=== PATIENT | female | born 2000 | race Two or more races ===

== ENCOUNTER 2024-08-19 09:49 | Outpatient (AMB) | payer MEDICAID, SELFPAY ==
--- NOTE | 2024-08-19 10:08 | OBCLNT_ITS ---
Vital Signs 08/19/24 10:09 Height 1.68 m Height Method Stated Weight 80.002 kg Weight Measurement Method Standing Scale BMI 28.4 BP 112/78 Blood Pressure Source Automatic Cuff Blood Pressure Location Left Upper Arm Position Sitting Respiration 18 Pulse 94 Pulse Source Monitor Temp 98.1 F Temp Source Oral Pulse Oximetry (%) 98 Oxygen Delivery Method Room Air Allergies/Home Meds Allergies & Medications Allergies No Known Allergies Allergy (Verified 08/19/24 10:10) Medication Reconciliation vit no.95-ferrous fumarate 28 mg-folic acid 800 mcg tablet () 1 tab PO QDAY 02/13/23 [History Confirmed 08/19/24] Intake Visit Data Collection New Patient or Established: Established Patient (seen at [facility] within 3 years) Reason for Visit:: Care 10 weeks Seen by Clinical Staff ONLY (RN/MA): No Major Gifts Manager Required: No Do You Feel Safe at Home: Yes Authorities Contacted: N/A PCP or OBGYN visit in last 3 months: Yes Hx Now: Yes Are you currently on any form of Control: No Last menstrual period: 06/11/24 Pain Present Currently: No Pain Scale Used: Hood-Roldan/Numerical Pain scale:: 0 Smoking Status Smoking Status: Never smoker Questionnaires Covid-19 Vaccine Questionnaire Has patient been vacinated for Covid-19 Have you been vacinated for Covid-19: Yes Date of last Covid Vaccine or Booster?: 04/21/21 PHQ-9 PHQ-2 Over the last 2 weeks, how often have you been bothered by any of the following problems? 1. Little interest or pleasure in doing things: not at all 2. Feeling down, depressed, or hopeless: not at all Total score: 0 PHQ-9 3. Trouble falling or staying asleep, or sleeping too much: Not at all 4. Feeling tired or having little energy: Not at all 5. Poor appetite or overeating: Not at all 6. Feeling bad about yourself - or that you are a failure or have let yourself or your family down: Not at all 7. Trouble concentrating on things, such as reading the newspaper or watching television: Not at all 8. Moving or speaking so slowly that other people could have noticed? - Or the opposite - being so fidgety or restless that you have been moving around a lot more than usual: not at all 9. Thoughts that you would be better off or of hurting yourself in some way: Not at all Total score: 0 Source: Developed by Drs. Drew West, Olinda Valente, Wilbert Jamison and colleagues, with an educational delroy from [employer]. Depression screen completed yes Social History Living Situation History Marital Status: Single Lives With: Family Housing: House Tobacco History Smoking Status: Never smoker Alcohol History Alcohol Intake: Never Substance Use History Substance Use: no Domestic Abuse History Do You Feel Safe at Home: Yes Past Medical History Past Medical History Have you ever been diagnosed with any of the following: Neurological Problems Cerebrovascular Accident (CVA): No Transient Ischemic Attacks (TIA): No Dementia: No Alzheimer's Disease: No Parkinson's Disease: No Brain Tumor: No Meningitis: No Seizures: No Epilepsy: No Multiple Sclerosis: No Cerebral Palsy: No Amyotrophic Lateral Sclerosis (ALS/Addie Gehrig's): No Guillain-[place] Syndrome: No Spina Bifida: No Paralysis: No Peripheral Neuropathy: No Thorne's Palsy: No Subdural Hematoma: No Migraine: No Head Trauma: No Spinal Cord Injury: No Traumatic Brain Injury: No Cardiology Problems Myocardial Infarction: No Cardiac Arrhythmia: No Atrial Fibrillation: No Angina: No Heart Murmur: No Coronary Artery Disease: No Atherosclerotic Heart Disease: No Peripheral Vascular Disease: No Hypercholesterolemia: No Aneurysm: No Congestive Heart Failure: No Congenital Heart Disease: No Valvular Heart Disease: No Rheumatic Fever: No Cardiomyopathy: No Edema: No Pericarditis: No Cellulitis: No Deep Vein Thrombosis: No Hypertension: No Hypotension: No Varicose Veins: No Respiratory Problems Chronic Obstructive Pulmonary Disease (COPD): No Asthma: No Bronchitis: No Emphysema: No Pneumonia: No Pulmonary Fibrosis: No Tuberculosis: No Pulmonary Embolism: No Pulmonary Edema: No Sleep Apnea: No CPAP Dependent: No Respiratory Aspiration: No Dyspnea: No Orthopnea: No Hx Cough: No Cough: No Wheezing: No Chest Deformities: No Smoking: No Smoking Cessation Counseling: No Smoking Exposure: No Tobacco Use: No Clubbing: No Exposure to Respiratory Irritants: No Intubation: No Stomache/Intestinal Problems Liver Cancer: No Hepatitis: No Cirrhosis: No Pancreatic Cancer: No Pancreatitis: No Celiac Disease: No Gall Bladder Disease: No Gastrointestinal Bleed: No Esophageal Varices: No Waggoner's Esophagus: No Colitis: No Ulcerative Colitis: No Diverticulitis: No Diverticulosis: No Ulcer: No Colorectal Cancer: No Irritable Bowel: No Crohn's Disease: No Obstructive Bowel: No Hiatal Hernia: No Hemorrhoids: No Gastroesophageal Reflux Disease: No Polyps: No Obesity: No Genital/Urinary Problems Chronic Kidney Disease: No Renal Disease: No Kidney Stones: No Polycystic Kidney Disease: No Neurogenic Bladder: No Inguinal Hernia: No Dialysis: No Prostate Cancer: No Benign Prostatic Hyperplasia: No Reproductive Problems Breast Cancer: No Endometriosis: No Fibroids: No Genital Herpes: No Gonorrhea: No Pelvic Inflammatory Disease: No Polycystic Ovarian Syndrome: No Previous Pregnancies: No Syphilis: No Endocrine Problems Diabetes Mellitus Type 1: No Diabetes Mellitus Type 2: No Blood Problems Anemia: No Leukemia: No Hemophilia: No Thalassemia: No Sickle Cell Disease: No Clotting Problems: No Psychologic Problems Depression: No Anxiety: No Behavior Problems: No Other Problems Hospitalization: No Down Syndrome: No Developmental Delay: No Falls: No History of Present Illness HPI Narrative The patient is a 24-year-old -0-0-1 who presents to [facility]. She is approximately 8 to 9 weeks today. Her LMP was 06/11/2024 her EDC is 03/18/2025. She has a history of a vaginal delivery in . She was delivered by Rosa Elena Camilo. She states that she presented leaking fluid was admitted about 7 in the morning and delivered the baby the next afternoon at 4 PM she pushed approximately 30 minutes she had an epidural and an episiotomy she had a baby girl weighing 8 pounds 6 ounces she was 40 weeks . This she will stay home with her baby the father of the baby is the same as the previous his name is Guido and he is a combination welder apprentice. Patient has no complaints today no nausea vomiting no abnormal discharge no heavy vaginal bleeding. OB Initial Visit Menstrual History Menstrual reliability: definite Flow: normal Menstrual regularity: regular Monthly: Yes Age at menarche: 13 On control pills at conception: No Date of positive home test: 07/13/24 Associated symptoms (LMP): Reports nausea, vomiting, fatigue and bloating Infection History & Risk Evaluation History of STDs: none Genetic Screening & History Genetic Screening/Teratology Counseling - Includes patient, baby's father, or anyone in either family with: 1. Patient's age 35 years or older as of estimated date of delivery: No 2. Thalassemia (Icelandic, Chinese, Mediterranean, or Background); MCV less than 80: No 3. Neural Tube Defect (Meningomyelocele, Spina Bifida, or Anencephaly): No 4. Congenital Heart Defect: No 5. Down Syndrome: No 6. Alvaro-Sachs (Ashkenazi Bahai, Cajun, Malay Cato): No 7. Eve Disease (Ashkenazi Bahai): No 8. Familial Dysautonomia (Ashkenazi Bahai): No 9. Sickle Cell Disease or Trait (): No 10. Hemophilia or other blood disorders: No 11. Muscular Dystrophy: No 12. Cystic Fibrosis: No 13. Mcculloch's Chorea: No 14. Mental Retardation/Autism: No 15. Other inherited genetic or chromosomal disorder: No 16. Maternal Metabolic Disorder (EG,TYPE 1 Diabetes, PKU): No 17. Patient or baby's father had a child with defects not listed above: No 18. Recurrent loss or a stillbirth: No 19. Medications (including supplements, vitamins, herbs or otc drugs)/illicit/recreational drugs/alcohol since last menstrual period: No 20. Any other: No Comments/Counseling: Patient desires NIPT testing today. Infection History 1. Live with someone with TB or exposed to TB: No 2. Rash or viral illness since last menstrual period: No 3. Hepatitis B,C: No Other (see comments) Source: [employer] OB Flowsheet OB Flowsheet Initial Weight: Not Recorded Date -?-?-?-?-?-?-?-?-?-?-?-?- EGA Weight Edema CTX Effacement BP Fundal ht Pres Dilation Effacement Station Visit Note Alb Glu FHR Mov 08/19/24 -?-?-?-?-?-?-?-?-?-?-?-?- 8w 5d 80.002 kg 112/78 140 Review of Systems Constitutional Constitutional: Reports system reviewed and no additional complaints, except as documented and Reports fatigue Gastrointestinal Gastrointestinal: Reports bloating, Reports nausea and Reports vomiting Endocrine Endocrine: Reports fatigue Exam General Limitations: no limitations General Appearance: alert, in no apparent distress, comfortable and cooperative Card Cardiovascular exam: Present regular rate and normal rhythm Abdominal Abdominal exam: Present soft Rectal Rectal exam: Present deferred External exam: Present normal external exam Bimanual exam: Present normal bimanual exam Extremities Extremities exam: Present normal inspection Results Objective Laboratory: labs are reviewed drawn at [facility] on 07/26/2024 her blood type is O- antibody negative hep B surface antigen negative RPR negative rubella immune hep C negative GC committee negative and her urine was contaminated. Patient is not due for a Pap smear. Assessment & Plan Additional Assessment Assessment is intrauterine at 8 weeks 5 days. Due date is around 03/25/2025. She is redated based on today's ultrasound. Patient will stay at home this . The father of the baby's name is Guido and he is a combination welder apprentice. Additional Plan Past OB History is reviewed: The patient had a vaginal delivery in at 40 weeks. Baby weighed 8 pounds 6 ounces was a female. Named Siomara. She presented to the hospital leaking fluid. She was admitted approximately 7 in the morning and delivered at 4 PM the next day. She had an epidural and episiotomy and only pushed 30 minutes per patient. Rosa Elena Camilo delivered her. Follow Up: 4 Weeks (call for appointment) Office Procedures OB Clinic LOC & Office Proc's Nursing/Assessment Patient Status: Established Patient OB Clinic Nursing Assessment: Medication Reconciliation, Update PMH in EMR and Vital Signs OB Clinic Coordination of Care: Complex Care and Chronic Disease 1-5, Consent,records obtained, informed consent, Education Simp Pt/Fam, Lab and Imaging orders, Results/Orders obtained and Staff clarify orders Special Needs: Heart tones Established Patient Charge Established Patient Point Assignment: 135 Established Patient Point Charge: EP Level 4 (120-155)
[2024-08-19 10:09] VITALS: BP 112/78; PULSE 94; RESP 18; TEMP 36.7; O2SAT 98; BMI 28.4
--- NOTE | 2024-08-19 10:59 | AMB.GYNCLNOT ---
Vital Signs 08/19/24 10:09 Height 1.68 m Height Method Stated Weight 80.002 kg Weight Measurement Method Standing Scale BMI 28.4 BP 112/78 Blood Pressure Source Automatic Cuff Blood Pressure Location Left Upper Arm Position Sitting Respiration 18 Pulse 94 Pulse Source Monitor Temp 98.1 F Temp Source Oral Pulse Oximetry (%) 98 Oxygen Delivery Method Room Air Allergies/Home Meds Allergies & Medications Allergies No Known Allergies Allergy (Verified 08/19/24 10:10) Medication Reconciliation vit no.95-ferrous fumarate 28 mg-folic acid 800 mcg tablet () 1 tab PO QDAY 02/13/23 [History Confirmed 08/19/24] Intake Visit Data Collection Do You Feel Safe at Home: Yes Smoking Status Smoking Status: Never smoker Questionnaires Covid-19 Vaccine Questionnaire Has patient been vacinated for Covid-19 Have you been vacinated for Covid-19: Yes Date of last Covid Vaccine or Booster?: 04/21/21 PHQ-9 PHQ-2 Over the last 2 weeks, how often have you been bothered by any of the following problems? 1. Little interest or pleasure in doing things: not at all PHQ-9 3. Trouble falling or staying asleep, or sleeping too much: Not at all 4. Feeling tired or having little energy: Not at all 5. Poor appetite or overeating: Not at all 6. Feeling bad about yourself - or that you are a failure or have let yourself or your family down: Not at all 7. Trouble concentrating on things, such as reading the newspaper or watching television: Not at all 8. Moving or speaking so slowly that other people could have noticed? - Or the opposite - being so fidgety or restless that you have been moving around a lot more than usual: not at all Total score: 0 Source: Developed by Drs. Drew West, Olinda Valente, Wilbert Jamison and colleagues, with an educational delroy from [employer]. Social History Living Situation History Marital Status: Single Lives With: Family Housing: House Tobacco History Smoking Status: Never smoker Alcohol History Alcohol Intake: Never Substance Use History Substance Use: no Domestic Abuse History Do You Feel Safe at Home: Yes Past Medical History Past Medical History Have you ever been diagnosed with any of the following: Neurological Problems Cerebrovascular Accident (CVA): No Transient Ischemic Attacks (TIA): No Dementia: No Alzheimer's Disease: No Parkinson's Disease: No Brain Tumor: No Meningitis: No Seizures: No Epilepsy: No Multiple Sclerosis: No Cerebral Palsy: No Amyotrophic Lateral Sclerosis (ALS/Addie Gehrig's): No Guillain-[place] Syndrome: No Spina Bifida: No Paralysis: No Peripheral Neuropathy: No Thorne's Palsy: No Subdural Hematoma: No Migraine: No Head Trauma: No Spinal Cord Injury: No Traumatic Brain Injury: No Cardiology Problems Myocardial Infarction: No Cardiac Arrhythmia: No Atrial Fibrillation: No Angina: No Heart Murmur: No Coronary Artery Disease: No Atherosclerotic Heart Disease: No Peripheral Vascular Disease: No Hypercholesterolemia: No Aneurysm: No Congestive Heart Failure: No Congenital Heart Disease: No Valvular Heart Disease: No Rheumatic Fever: No Cardiomyopathy: No Edema: No Pericarditis: No Cellulitis: No Deep Vein Thrombosis: No Hypertension: No Hypotension: No Varicose Veins: No Respiratory Problems Chronic Obstructive Pulmonary Disease (COPD): No Asthma: No Bronchitis: No Emphysema: No Pneumonia: No Pulmonary Fibrosis: No Tuberculosis: No Pulmonary Embolism: No Pulmonary Edema: No Sleep Apnea: No CPAP Dependent: No Respiratory Aspiration: No Dyspnea: No Orthopnea: No Hx Cough: No Cough: No Wheezing: No Chest Deformities: No Smoking: No Smoking Cessation Counseling: No Smoking Exposure: No Tobacco Use: No Clubbing: No Exposure to Respiratory Irritants: No Intubation: No Stomache/Intestinal Problems Liver Cancer: No Hepatitis: No Cirrhosis: No Pancreatic Cancer: No Pancreatitis: No Celiac Disease: No Gall Bladder Disease: No Gastrointestinal Bleed: No Esophageal Varices: No Waggoner's Esophagus: No Colitis: No Ulcerative Colitis: No Diverticulitis: No Diverticulosis: No Ulcer: No Colorectal Cancer: No Irritable Bowel: No Crohn's Disease: No Obstructive Bowel: No Hiatal Hernia: No Hemorrhoids: No Gastroesophageal Reflux Disease: No Polyps: No Obesity: No Genital/Urinary Problems Chronic Kidney Disease: No Renal Disease: No Kidney Stones: No Polycystic Kidney Disease: No Neurogenic Bladder: No Inguinal Hernia: No Dialysis: No Prostate Cancer: No Benign Prostatic Hyperplasia: No Reproductive Problems Breast Cancer: No Endometriosis: No Fibroids: No Genital Herpes: No Gonorrhea: No Pelvic Inflammatory Disease: No Polycystic Ovarian Syndrome: No Previous Pregnancies: No Syphilis: No Endocrine Problems Diabetes Mellitus Type 1: No Diabetes Mellitus Type 2: No Blood Problems Anemia: No Leukemia: No Hemophilia: No Thalassemia: No Sickle Cell Disease: No Clotting Problems: No Psychologic Problems Depression: No Anxiety: No Behavior Problems: No Other Problems Hospitalization: No Down Syndrome: No Developmental Delay: No Falls: No Office Procedures OB Clinic LOC & Office Proc's Nursing/Assessment Patient Status: Established Patient OB Clinic Nursing Assessment: Medication Reconciliation, Update PMH in EMR and Vital Signs OB Clinic Coordination of Care: Complex Care and Chronic Disease 1-5, Consent,records obtained, informed consent, Education Simp Pt/Fam, Lab and Imaging orders, Results/Orders obtained and Staff clarify orders Special Needs: Heart tones Established Patient Charge Established Patient Point Assignment: 135 Established Patient Point Charge: EP Level 4 (120-155)
== END 2024-08-19 10:41 | disposition home or self-care (01) ==
LOC: HODSOBC 09:49
PROVIDERS: PCP Family Medicine; Supervising Provider Obstetrics & Gynecology; Visit Provider Obstetrics & Gynecology
DX: Z34.81 Encounter for supervision of other normal pregnancy, first trimester (principal); Z3A.09 9 weeks gestation of pregnancy
CPT/HCPCS: 99213; 99214; G0463

== ENCOUNTER 2024-09-11 09:53 | Outpatient (AMB) | payer MEDICAID, SELFPAY ==
[2024-09-11 10:06] VITALS: BP 102/69; PULSE 76; RESP 14; TEMP 36.6; O2SAT 98; BMI 27.9
--- NOTE | 2024-09-11 10:06 | OBCLNT_ITS ---
Vital Signs 09/11/24 10:06 Height 1.68 m Height Method Stated Weight 78.528 kg Weight Measurement Method Standing Scale BMI 27.9 BP 102/69 Blood Pressure Source Automatic Cuff Blood Pressure Location Left Upper Arm Position Sitting Respiration 14 Pulse 76 Pulse Source Monitor Temp 97.9 F Temp Source Oral Pulse Oximetry (%) 98 Oxygen Delivery Method Room Air Allergies/Home Meds Allergies & Medications Allergies No Known Allergies Allergy (Verified 09/11/24 10:08) Medication Reconciliation vit no.95-ferrous fumarate 28 mg-folic acid 800 mcg tablet () 1 tab PO QDAY 02/13/23 [History Confirmed 09/11/24] Intake Visit Data Collection New Patient or Established: Established Patient (seen at [facility] within 3 years) Reason for Visit:: 4 week OB visit Seen by Clinical Staff ONLY (RN/MA): No Ecological Economist Required: No Do You Feel Safe at Home: Yes Authorities Contacted: N/A PCP or OBGYN visit in last 3 months: Yes Date of Last PCP or OBGYN visit: 08/19/24 Hx Now: Yes Are you currently on any form of Control: No Last menstrual period: 06/11/24 Pain Present Currently: No Pain Scale Used: Hood-Roldan/Numerical Pain scale:: 0 Smoking Status Smoking Status: Never smoker Questionnaires Covid-19 Vaccine Questionnaire Has patient been vacinated for Covid-19 Have you been vacinated for Covid-19: Yes PHQ-9 PHQ-2 Over the last 2 weeks, how often have you been bothered by any of the following problems? 1. Little interest or pleasure in doing things: not at all 2. Feeling down, depressed, or hopeless: not at all Total score: 0 PHQ-9 3. Trouble falling or staying asleep, or sleeping too much: Not at all 4. Feeling tired or having little energy: Not at all 5. Poor appetite or overeating: Not at all 6. Feeling bad about yourself - or that you are a failure or have let yourself or your family down: Not at all 7. Trouble concentrating on things, such as reading the newspaper or watching television: Not at all 8. Moving or speaking so slowly that other people could have noticed? - Or the opposite - being so fidgety or restless that you have been moving around a lot more than usual: not at all 9. Thoughts that you would be better off or of hurting yourself in some way: Not at all Total score: 0 Source: Developed by Drs. Drew West, Olinda Valente, Wilbert Jamison and colleagues, with an educational delroy from [employer]. Depression screen completed yes Social History Living Situation History Marital Status: Lives With: Family Housing: House Tobacco History Smoking Status: Never smoker Second Hand Smoke Exposure: No Alcohol History Alcohol Intake: Never Substance Use History Substance Use: no Domestic Abuse History Do You Feel Safe at Home: Yes Past Medical History Past Medical History Have you ever been diagnosed with any of the following: Neurological Problems Cerebrovascular Accident (CVA): No Transient Ischemic Attacks (TIA): No Dementia: No Alzheimer's Disease: No Parkinson's Disease: No Brain Tumor: No Meningitis: No Seizures: No Epilepsy: No Multiple Sclerosis: No Cerebral Palsy: No Amyotrophic Lateral Sclerosis (ALS/Addie Gehrig's): No Guillain-[place] Syndrome: No Spina Bifida: No Paralysis: No Peripheral Neuropathy: No Thorne's Palsy: No Subdural Hematoma: No Migraine: No Head Trauma: No Spinal Cord Injury: No Traumatic Brain Injury: No Cardiology Problems Myocardial Infarction: No Cardiac Arrhythmia: No Atrial Fibrillation: No Angina: No Heart Murmur: No Coronary Artery Disease: No Atherosclerotic Heart Disease: No Peripheral Vascular Disease: No Hypercholesterolemia: No Aneurysm: No Congestive Heart Failure: No Congenital Heart Disease: No Valvular Heart Disease: No Rheumatic Fever: No Cardiomyopathy: No Edema: No Pericarditis: No Cellulitis: No Deep Vein Thrombosis: No Hypertension: No Hypotension: No Varicose Veins: No Respiratory Problems Chronic Obstructive Pulmonary Disease (COPD): No Asthma: No Bronchitis: No Emphysema: No Pneumonia: No Pulmonary Fibrosis: No Tuberculosis: No Pulmonary Embolism: No Pulmonary Edema: No Sleep Apnea: No CPAP Dependent: No Respiratory Aspiration: No Dyspnea: No Orthopnea: No Hx Cough: No Cough: No Wheezing: No Chest Deformities: No Smoking: No Smoking Cessation Counseling: No Smoking Exposure: No Tobacco Use: No Clubbing: No Exposure to Respiratory Irritants: No Intubation: No Stomache/Intestinal Problems Liver Cancer: No Hepatitis: No Cirrhosis: No Pancreatic Cancer: No Pancreatitis: No Celiac Disease: No Gall Bladder Disease: No Gastrointestinal Bleed: No Esophageal Varices: No Waggoner's Esophagus: No Colitis: No Ulcerative Colitis: No Diverticulitis: No Diverticulosis: No Ulcer: No Colorectal Cancer: No Irritable Bowel: No Crohn's Disease: No Obstructive Bowel: No Hiatal Hernia: No Hemorrhoids: No Gastroesophageal Reflux Disease: No Obesity: No Genital/Urinary Problems Renal Disease: No Kidney Stones: No Polycystic Kidney Disease: No Neurogenic Bladder: No Inguinal Hernia: No Dialysis: No Prostate Cancer: No Benign Prostatic Hyperplasia: No Reproductive Problems Breast Cancer: No Endometriosis: No Fibroids: No Genital Herpes: No Gonorrhea: No Pelvic Inflammatory Disease: No Polycystic Ovarian Syndrome: No Previous Pregnancies: No Syphilis: No Head,Eye,Nose,Throat Problems Cataracts: No Glaucoma: No Blind: No Retinal Detachment: No Macular Degeneration: No Chronic Ear Infections: No Deafness: No Eye Prosthesis: No Endocrine Problems Diabetes Mellitus Type 1: No Diabetes Mellitus Type 2: No Hypoglycemia: No [place]'s Syndrome: No [place]'s Disease: No Hyperthyroidism: No Hypothyroidism: No Thyroid Cancer: No Parathyroid Disease: No Pituitary Disease: No Systemic Lupus Erythematosus: No Syndrome of Inappropriate Antidiuretic Hormone: No Adrenal Disease: No Graves' Disease: No Blood Problems Anemia: No Leukemia: No Hemophilia: No Thalassemia: No Sickle Cell Disease: No Clotting Problems: No Psychologic Problems Depression: No Anxiety: No Behavior Problems: No Other Problems Hospitalization: No Down Syndrome: No Developmental Delay: No Falls: No Surgical History Angioplasty: No Appendectomy: No Bariatric Surgery: No Breast Surgery: No Cancer Surgery: No History of Present Illness HPI Narrative Patient denies any vaginal bleeding no severe nausea or vomiting she is a little tired she has a year and 1/2-year-old at home. She had all her labs drawn. She found out she is having a boy. She has a daughter at home. Review of Systems Constitutional Comments: No bleeding no cramping no pain. Visit ALLEGRA Calculator Estimated Delivery Date Method Current WG Current Estimate 03/26/25 Ultrasound #1 12w 0d Initial Weight: Not Recorded Date -?-?-?-?-?-?-?-?-?-?-?-?- EGA Weight Edema CTX Effacement BP Fundal ht Pres Dilation Effacement Station Visit Note Alb Glu FHR Mov 08/19/24 -?-?-?-?-?-?-?-?-?-?-?-?- 8w 5d 80.002 kg 112/78 140 09/11/24 -?-?-?-?-?-?-?-?-?-?-?-?- 12w 0d 78.528 kg 102/69 12 160 Results Objective Imaging: Transabdominal ultrasound performed crown-rump length 6.16 cm 12 weeks 4 days EDC 03/25/2025 Exam Narrative Physical exam: Patient is alert and oriented x 3 no apparent distress Assessment & Plan Additional Assessment Intrauterine at 12 weeks 4 days with an EDC of 03/25/2025. No complaints. Return to clinic in 4 weeks. Office Procedures OB Clinic LOC & Office Proc's Nursing/Assessment Patient Status: Established Patient OB Clinic Nursing Assessment: Medication Reconciliation, Update PMH in EMR and Vital Signs OB Clinic Coordination of Care: Complex Care and Chronic Disease 1-5, Consent,records obtained, informed consent, Education Simp Pt/Fam, Results/Orders obtained and Staff clarify orders Special Needs: Heart tones Established Patient Charge Established Patient Point Assignment: 120 Established Patient Point Charge: EP Level 4 (120-155)
== END 2024-09-11 10:20 | disposition home or self-care (01) ==
LOC: HODSOBC 09:53
PROVIDERS: PCP Family Medicine; Referring Provider Family Medicine; Supervising Provider Obstetrics & Gynecology; Visit Provider Obstetrics & Gynecology
DX: Z34.81 Encounter for supervision of other normal pregnancy, first trimester (principal); Z3A.12 12 weeks gestation of pregnancy
CPT/HCPCS: 99214; G0463

== ENCOUNTER 2024-10-14 08:21 | Outpatient (AMB) | payer MEDICAID, SELFPAY ==
[2024-10-14 08:27] VITALS: BP 120/76; PULSE 104; RESP 18; TEMP 36.5; O2SAT 98; BMI 27.8
--- NOTE | 2024-10-14 08:27 | OBCLNT_ITS ---
Vital Signs 10/14/24 08:27 Height 1.68 m Height Method Stated Weight 78.642 kg Weight Measurement Method Standing Scale BMI 27.8 BP 120/76 Blood Pressure Source Automatic Cuff Blood Pressure Location Left Upper Arm Position Sitting Respiration 18 Pulse 104 H Pulse Source Monitor Temp 97.7 F Temp Source Oral Pulse Oximetry (%) 98 Oxygen Delivery Method Room Air Allergies/Home Meds Allergies & Medications Allergies No Known Allergies Allergy (Verified 10/14/24 08:28) Medication Reconciliation vit no.95-ferrous fumarate 28 mg-folic acid 800 mcg tablet () 1 tab PO QDAY 02/13/23 [History Confirmed 10/14/24] Intake Visit Data Collection New Patient or Established: Established Patient (seen at [facility] within 3 years) Reason for Visit:: CARE Seen by Clinical Staff ONLY (RN/MA): No Director Of Business Services Required: No Do You Feel Safe at Home: Yes Authorities Contacted: N/A PCP or OBGYN visit in last 3 months: Yes Hx Now: Yes Are you currently on any form of Control: No Last menstrual period: 06/11/24 Pain Present Currently: No Pain Scale Used: Hood-Roldan/Numerical Pain scale:: 0 Smoking Status Smoking Status: Never smoker Questionnaires Covid-19 Vaccine Questionnaire Has patient been vacinated for Covid-19 Have you been vacinated for Covid-19: Yes PHQ-9 PHQ-2 Over the last 2 weeks, how often have you been bothered by any of the following problems? 1. Little interest or pleasure in doing things: not at all 2. Feeling down, depressed, or hopeless: not at all Total score: 0 PHQ-9 3. Trouble falling or staying asleep, or sleeping too much: Not at all 4. Feeling tired or having little energy: Not at all 5. Poor appetite or overeating: Not at all 6. Feeling bad about yourself - or that you are a failure or have let yourself or your family down: Not at all 7. Trouble concentrating on things, such as reading the newspaper or watching television: Not at all 8. Moving or speaking so slowly that other people could have noticed? - Or the opposite - being so fidgety or restless that you have been moving around a lot more than usual: not at all 9. Thoughts that you would be better off or of hurting yourself in some way: Not at all Total score: 0 Source: Developed by Drs. Drew West, Olinda Valente, Wilbert Jamison and colleagues, with an educational delroy from [employer]. Depression screen completed yes Social History Living Situation History Lives With: Family Housing: House Tobacco History Smoking Status: Never smoker Second Hand Smoke Exposure: No Alcohol History Alcohol Intake: Never Substance Use History Substance Use: no Domestic Abuse History Do You Feel Safe at Home: Yes Past Medical History Past Medical History Have you ever been diagnosed with any of the following: Neurological Problems Cerebrovascular Accident (CVA): No Transient Ischemic Attacks (TIA): No Dementia: No Alzheimer's Disease: No Parkinson's Disease: No Brain Tumor: No Meningitis: No Seizures: No Epilepsy: No Multiple Sclerosis: No Cerebral Palsy: No Amyotrophic Lateral Sclerosis (ALS/Addie Gehrig's): No Guillain-[place] Syndrome: No Spina Bifida: No Paralysis: No Peripheral Neuropathy: No Thorne's Palsy: No Subdural Hematoma: No Migraine: No Head Trauma: No Spinal Cord Injury: No Traumatic Brain Injury: No Cardiology Problems Myocardial Infarction: No Cardiac Arrhythmia: No Atrial Fibrillation: No Angina: No Heart Murmur: No Coronary Artery Disease: No Atherosclerotic Heart Disease: No Peripheral Vascular Disease: No Hypercholesterolemia: No Aneurysm: No Congestive Heart Failure: No Congenital Heart Disease: No Valvular Heart Disease: No Rheumatic Fever: No Cardiomyopathy: No Edema: No Pericarditis: No Cellulitis: No Deep Vein Thrombosis: No Hypertension: No Hypotension: No Varicose Veins: No Respiratory Problems Chronic Obstructive Pulmonary Disease (COPD): No Asthma: No Bronchitis: No Emphysema: No Pneumonia: No Pulmonary Fibrosis: No Tuberculosis: No Pulmonary Embolism: No Pulmonary Edema: No Sleep Apnea: No CPAP Dependent: No Respiratory Aspiration: No Dyspnea: No Orthopnea: No Hx Cough: No Cough: No Wheezing: No Chest Deformities: No Smoking: No Smoking Cessation Counseling: No Smoking Exposure: No Tobacco Use: No Clubbing: No Exposure to Respiratory Irritants: No Intubation: No Stomache/Intestinal Problems Liver Cancer: No Hepatitis: No Cirrhosis: No Pancreatic Cancer: No Pancreatitis: No Celiac Disease: No Gall Bladder Disease: No Gastrointestinal Bleed: No Esophageal Varices: No Waggoner's Esophagus: No Colitis: No Ulcerative Colitis: No Diverticulitis: No Diverticulosis: No Ulcer: No Colorectal Cancer: No Irritable Bowel: No Crohn's Disease: No Obstructive Bowel: No Hiatal Hernia: No Hemorrhoids: No Gastroesophageal Reflux Disease: No Obesity: No Genital/Urinary Problems Renal Disease: No Kidney Stones: No Polycystic Kidney Disease: No Neurogenic Bladder: No Inguinal Hernia: No Dialysis: No Reproductive Problems Breast Cancer: No Endometriosis: No Fibroids: No Genital Herpes: No Gonorrhea: No Pelvic Inflammatory Disease: No Polycystic Ovarian Syndrome: No Previous Pregnancies: No Syphilis: No Musculoskeletal Problems Muscular Dystrophy: No Myasthenia Gravis: No Marfan's Syndrome: No Bone Cancer: No Head,Eye,Nose,Throat Problems Cataracts: No Glaucoma: No Blind: No Retinal Detachment: No Macular Degeneration: No Chronic Ear Infections: No Deafness: No Eye Prosthesis: No Endocrine Problems Diabetes Mellitus Type 1: No Diabetes Mellitus Type 2: No Hypoglycemia: No Jeferson's Syndrome: No [place]'s Disease: No Hyperthyroidism: No Hypothyroidism: No Thyroid Cancer: No Parathyroid Disease: No Pituitary Disease: No Systemic Lupus Erythematosus: No Syndrome of Inappropriate Antidiuretic Hormone: No Adrenal Disease: No Graves' Disease: No Blood Problems Anemia: No Leukemia: No Hemophilia: No Thalassemia: No Sickle Cell Disease: No Clotting Problems: No Psychologic Problems Depression: No Anxiety: No Behavior Problems: No Other Problems Hospitalization: No Down Syndrome: No Developmental Delay: No Falls: No Surgical History Angioplasty: No Appendectomy: No Bariatric Surgery: No Breast Surgery: No Cancer Surgery: No Visit OB Visit Log OB Flowsheet Initial Weight: Not Recorded Date -?-?-?-?-?-?-?-?-?-?-?-?- EGA Weight Edema CTX Effacement BP Fundal ht Pres Dilation Effacement Station Visit Note Alb Glu FHR Mov 08/19/24 -?-?-?-?-?-?-?-?-?-?-?-?- 8w 5d 80.002 kg 112/78 140 09/11/24 -?-?-?-?-?-?-?-?-?-?-?-?- 12w 0d 78.528 kg 102/69 12 160 10/14/24 -?-?-?-?-?-?-?-?-?-?-?-?- 16w 5d 78.642 kg 120/76 16 150 active ALLEGRA Calculator Estimated Delivery Date Method Current WG Current Estimate 03/26/25 Ultrasound #1 16w 5d Notes Visit Date: 10/14/24 Last Updated by: Ellen Aviles (OB Clinic)MD Patient reports some flutters. No vaginal bleeding no cramping. She states she has lost about 10 pounds this but now her appetite is much better. She is set for structural survey in 4 weeks. Office Procedures OB Clinic LOC & Office Proc's Nursing/Assessment Patient Status: Established Patient OB Clinic Nursing Assessment: Medication Reconciliation, Update PMH in EMR and Vital Signs OB Clinic Coordination of Care: Complex Care and Chronic Disease 1-5, Consent,records obtained, informed consent, Education Simp Pt/Fam, Results/Orders obtained and Staff clarify orders Special Needs: Heart tones Established Patient Charge Established Patient Point Assignment: 120 Established Patient Point Charge: EP Level 4 (120-155)
== END 2024-10-14 08:48 | disposition home or self-care (01) ==
LOC: HODSOBC 08:21
PROVIDERS: PCP Family Medicine; Referring Provider Family Medicine; Supervising Provider Obstetrics & Gynecology; Visit Provider Obstetrics & Gynecology
DX: Z34.02 Encounter for supervision of normal first pregnancy, second trimester (principal); Z3A.16 16 weeks gestation of pregnancy
CPT/HCPCS: 99214; G0463

== ENCOUNTER 2024-11-13 08:48 | Outpatient (AMB) | payer MEDICAID, SELFPAY ==
[2024-11-13 08:57] VITALS: BP 135/81; PULSE 99; RESP 18; TEMP 36.2; O2SAT 97; BMI 28.0
--- NOTE | 2024-11-13 08:57 | OBCLNT_ITS ---
Vital Signs 11/13/24 08:57 Height 1.68 m Height Method Stated Weight 79.095 kg Weight Measurement Method Standing Scale BMI 28.0 BP 135/81 H Blood Pressure Source Automatic Cuff Blood Pressure Location Left Upper Arm Position Sitting Respiration 18 Pulse 99 Pulse Source Monitor Temp 97.2 F Temp Source Oral Pulse Oximetry (%) 97 Oxygen Delivery Method Room Air Allergies/Home Meds Allergies & Medications Allergies No Known Allergies Allergy (Verified 11/13/24 08:58) Medication Reconciliation vit no.95-ferrous fumarate 28 mg-folic acid 800 mcg tablet () 1 tab PO QDAY 02/13/23 [History Confirmed 11/13/24] Intake Visit Data Collection New Patient or Established: Established Patient (seen at [facility] within 3 years) Reason for Visit:: Return OB visit Seen by Clinical Staff ONLY (RN/MA): No Technical Service Rep Required: No Do You Feel Safe at Home: Yes Authorities Contacted: N/A PCP or OBGYN visit in last 3 months: Yes Date of Last PCP or OBGYN visit: 10/14/24 Hx Now: Yes Are you currently on any form of Control: No Pain Present Currently: No Pain Scale Used: Hood-Roldan/Numerical Pain scale:: 0 Smoking Status Smoking Status: Never smoker Questionnaires Covid-19 Vaccine Questionnaire Has patient been vacinated for Covid-19 Have you been vacinated for Covid-19: Yes PHQ-9 PHQ-2 Over the last 2 weeks, how often have you been bothered by any of the following problems? 1. Little interest or pleasure in doing things: not at all 2. Feeling down, depressed, or hopeless: not at all Total score: 0 PHQ-9 3. Trouble falling or staying asleep, or sleeping too much: Not at all 4. Feeling tired or having little energy: Not at all 5. Poor appetite or overeating: Not at all 6. Feeling bad about yourself - or that you are a failure or have let yourself or your family down: Not at all 7. Trouble concentrating on things, such as reading the newspaper or watching television: Not at all 8. Moving or speaking so slowly that other people could have noticed? - Or the opposite - being so fidgety or restless that you have been moving around a lot more than usual: not at all 9. Thoughts that you would be better off or of hurting yourself in some way: Not at all Total score: 0 If you checked off any problems, how difficult have these problems made it for you to do your work, take care of things at home, or get along with other people?: not difficult at all Source: Developed by Drs. Drew West, Olinda Valente, Wilbert Jamison and colleagues, with an educational delroy from [employer]. Depression screen completed yes Social History Living Situation History Marital Status: Life Partner Lives With: Family Housing: House Housing Other:: Has a 1-1/2-year-old child at home Tobacco History Smoking Status: Never smoker Second Hand Smoke Exposure: No Alcohol History Alcohol Intake: Never Substance Use History Substance Use: no Domestic Abuse History Do You Feel Safe at Home: Yes Past Medical History Past Medical History Have you ever been diagnosed with any of the following: Neurological Problems Cerebrovascular Accident (CVA): No Transient Ischemic Attacks (TIA): No Dementia: No Alzheimer's Disease: No Parkinson's Disease: No Brain Tumor: No Meningitis: No Seizures: No Epilepsy: No Multiple Sclerosis: No Cerebral Palsy: No Amyotrophic Lateral Sclerosis (ALS/Addie Gehrig's): No Guillain-[place] Syndrome: No Spina Bifida: No Paralysis: No Peripheral Neuropathy: No Thorne's Palsy: No Subdural Hematoma: No Migraine: No Head Trauma: No Spinal Cord Injury: No Traumatic Brain Injury: No Cardiology Problems Myocardial Infarction: No Cardiac Arrhythmia: No Atrial Fibrillation: No Angina: No Heart Murmur: No Coronary Artery Disease: No Atherosclerotic Heart Disease: No Peripheral Vascular Disease: No Hypercholesterolemia: No Aneurysm: No Congestive Heart Failure: No Congenital Heart Disease: No Valvular Heart Disease: No Rheumatic Fever: No Cardiomyopathy: No Edema: No Pericarditis: No Cellulitis: No Deep Vein Thrombosis: No Hypertension: No Hypotension: No Varicose Veins: No Respiratory Problems Chronic Obstructive Pulmonary Disease (COPD): No Asthma: No Bronchitis: No Emphysema: No Pneumonia: No Pulmonary Fibrosis: No Tuberculosis: No Pulmonary Embolism: No Pulmonary Edema: No Sleep Apnea: No CPAP Dependent: No Respiratory Aspiration: No Dyspnea: No Orthopnea: No Hx Cough: No Cough: No Wheezing: No Chest Deformities: No Smoking: No Smoking Cessation Counseling: No Smoking Exposure: No Tobacco Use: No Clubbing: No Exposure to Respiratory Irritants: No Intubation: No Stomache/Intestinal Problems Liver Cancer: No Hepatitis: No Cirrhosis: No Pancreatic Cancer: No Pancreatitis: No Celiac Disease: No Gall Bladder Disease: No Gastrointestinal Bleed: No Esophageal Varices: No Waggoner's Esophagus: No Colitis: No Ulcerative Colitis: No Diverticulitis: No Diverticulosis: No Ulcer: No Colorectal Cancer: No Irritable Bowel: No Crohn's Disease: No Obstructive Bowel: No Hiatal Hernia: No Hemorrhoids: No Gastroesophageal Reflux Disease: No Obesity: No Genital/Urinary Problems Renal Disease: No Kidney Stones: No Polycystic Kidney Disease: No Neurogenic Bladder: No Inguinal Hernia: No Dialysis: No Reproductive Problems Breast Cancer: No Endometriosis: No Fibroids: No Genital Herpes: No Gonorrhea: No Pelvic Inflammatory Disease: No Polycystic Ovarian Syndrome: No Previous Pregnancies: No Syphilis: No Musculoskeletal Problems Muscular Dystrophy: No Myasthenia Gravis: No Marfan's Syndrome: No Bone Cancer: No Head,Eye,Nose,Throat Problems Cataracts: No Glaucoma: No Blind: No Retinal Detachment: No Macular Degeneration: No Chronic Ear Infections: No Deafness: No Eye Prosthesis: No Endocrine Problems Diabetes Mellitus Type 1: No Diabetes Mellitus Type 2: No Hypoglycemia: No [place]'s Syndrome: No [place]'s Disease: No Hyperthyroidism: No Hypothyroidism: No Thyroid Cancer: No Parathyroid Disease: No Pituitary Disease: No Systemic Lupus Erythematosus: No Syndrome of Inappropriate Antidiuretic Hormone: No Adrenal Disease: No Graves' Disease: No Blood Problems Anemia: No Leukemia: No Hemophilia: No Thalassemia: No Sickle Cell Disease: No Clotting Problems: No Psychologic Problems Depression: No Anxiety: No Behavior Problems: No Other Problems Hospitalization: No Down Syndrome: No Developmental Delay: No Falls: No Surgical History Angioplasty: No Appendectomy: No Bariatric Surgery: No Breast Surgery: No Cancer Surgery: No History of Present Illness HPI Narrative The patient is a 24-year-old -0-0-1 status post vaginal delivery 2022 by Rosa Elena Camilo who presents for obstetrical care Care OB Visit Log OB Flowsheet Initial Weight: Not Recorded Date -?-?-?-?-?-?-?-?-?-?-?-?- EGA Weight Edema CTX Effacement BP Fundal ht Pres Dilation Effacement Station Visit Note Alb Glu FHR Mov 08/19/24 -?-?-?-?-?-?-?-?-?-?-?-?- 8w 5d 80.002 kg 112/78 140 09/11/24 -?-?-?-?-?-?-?-?-?-?-?-?- 12w 0d 78.528 kg 102/69 12 160 10/14/24 -?-?-?-?-?-?-?-?-?-?-?-?- 16w 5d 78.642 kg 120/76 16 150 active 11/13/24 -?-?-?-?-?-?-?-?-?-?-?-?- 21w 0d 79.095 kg 135/81 22 P atient is doing well she is almost back up to her first weight. She has an ultrasound scheduled this week at [facility] for structural survey. Patient knows it is a boy. She will name Ricky. No bleeding or contractions. Good movement. 140 active ALLEGRA Calculator Estimated Delivery Date Method Current WG Current Estimate 03/26/25 Ultrasound #1 21w 2d Comments: -0-0-1 8 of 2022. Female weighing 8 pounds 6 ounces. Rosa Elena Camilo CNM delivered at [facility] ([facility] 07/26/24) O-/Ab-/hepatitis B surface antigen negative/rubella im mune/RPR nonreactive/GC negative/chlamydia negative/hepatitis C-/HIV negative/urine culture contaminated/ NIPT 08/28/2024 within normal limits. Male. Expected Delivery Route/Plan x 1 anticipate Specific Issue/Plans Rh-. Will need RhoGAM. Notes Visit Date: 10/14/24 Last Updated by: Ellen Aviles (OB Clinic)MD Patient reports some flutters. No vaginal bleeding no cramping. She states she has lost about 10 pounds this but now her appetite is much better. She is set for structural survey in 4 weeks. Office Procedures OB Clinic LOC & Office Proc's Nursing/Assessment Patient Status: Established Patient OB Clinic Nursing Assessment: BP Monitoring, Medication Reconciliation, Update PMH in EMR and Vital Signs OB Clinic Coordination of Care: Consent,records obtained, informed consent, Education Simp Pt/Fam and Staff clarify orders Special Needs: Heart tones Established Patient Charge Established Patient Point Assignment: 105 Established Patient Point Charge: EP Level 3 (80-115)
[2024-11-13 16:38] LABS: Bilirubin,Urine Clinitek Negative (Negative); Blood,Urine Clinitek Negative (Negative); Glucose, Urine Clinitek Negative (Negative); Ketones,Urine Clinitek Negative (Negative); Leukocyte Esterase,Urine Clin Negative (Negative); Nitrite,Urine Clinitek Negative (Negative); PH,Urine Clinitek 6.5 (5.0-7.0); Protein,Urine Clinitek Negative (Neg - Trace); Specific Gravity,Urine Clin 1.025 (1.001-1.030)
== END 2024-11-13 09:52 | disposition home or self-care (01) ==
LOC: HODSOBC 08:48
PROVIDERS: PCP Family Medicine; Referring Provider Family Medicine; Supervising Provider Obstetrics & Gynecology; Visit Provider Obstetrics & Gynecology
DX: Z34.82 Encounter for supervision of other normal pregnancy, second trimester (principal); Z3A.21 21 weeks gestation of pregnancy
CPT/HCPCS: 81001; 99213; G0463

== ENCOUNTER 2024-12-16 09:25 | Outpatient (AMB) | payer MEDICAID, SELFPAY ==
[2024-12-16 09:56] VITALS: BP 110/71; PULSE 89; RESP 17; TEMP 36.7; O2SAT 98; BMI 28.4
--- NOTE | 2024-12-16 09:56 | OBCLNT_ITS ---
Vital Signs 12/16/24 09:56 Height 1.68 m Height Method Stated Weight 80.343 kg Weight Measurement Method Standing Scale BMI 28.4 BP 110/71 Blood Pressure Source Automatic Cuff Blood Pressure Location Right Upper Arm Position Sitting Respiration 17 Pulse 89 Pulse Source Monitor Temp 98.0 F Temp Source Temporal Artery Scan Pulse Oximetry (%) 98 Oxygen Delivery Method Room Air Allergies/Home Meds Allergies & Medications Allergies No Known Allergies Allergy (Verified 12/16/24 09:57) Medication Reconciliation vit no.95-ferrous fumarate 28 mg-folic acid 800 mcg tablet () 1 tab PO QDAY 02/13/23 [History Confirmed 12/16/24] Intake Visit Data Collection New Patient or Established: Established Patient (seen at [facility] within 3 years) Reason for Visit:: OBC / REQ REFILLS ON Seen by Clinical Staff ONLY (RN/MA): No Bag End Sewer Required: No Do You Feel Safe at Home: Yes Authorities Contacted: N/A PCP or OBGYN visit in last 3 months: Yes Date of Last PCP or OBGYN visit: 11/13/24 Hx Now: Yes Are you currently on any form of Control: No Pain Present Currently: No Pain Scale Used: Hood-Roldan/Numerical Pain scale:: 0 Smoking Status Smoking Status: Never smoker Questionnaires Covid-19 Vaccine Questionnaire Has patient been vacinated for Covid-19 Have you been vacinated for Covid-19: No PHQ-9 PHQ-2 Over the last 2 weeks, how often have you been bothered by any of the following problems? 1. Little interest or pleasure in doing things: not at all 2. Feeling down, depressed, or hopeless: not at all Total score: 0 PHQ-9 3. Trouble falling or staying asleep, or sleeping too much: Not at all 4. Feeling tired or having little energy: Not at all 5. Poor appetite or overeating: Not at all 6. Feeling bad about yourself - or that you are a failure or have let yourself or your family down: Not at all 7. Trouble concentrating on things, such as reading the newspaper or watching television: Not at all 8. Moving or speaking so slowly that other people could have noticed? - Or the opposite - being so fidgety or restless that you have been moving around a lot more than usual: not at all 9. Thoughts that you would be better off or of hurting yourself in some way: Not at all Total score: 0 If you checked off any problems, how difficult have these problems made it for you to do your work, take care of things at home, or get along with other people?: not difficult at all Source: Developed by Drs. Drew West, Olinda Valente, Wilbert Jamison and colleagues, with an educational delroy from [employer]. Depression screen completed yes Social History Living Situation History Marital Status: Life Partner Lives With: Family Housing: House Housing Other:: Has a 1-1/2-year-old child at home. a girl. 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 Past Medical History: No Hx Neurological Disorders, No Hx Hypothyroidism, No Hx Hyperthyroidism, No Hx Breast Cancer, No Hx Cardiac Disorders, No Hx Hypertension, No Hx Blood Disorders, No Hx Anemia, No Hx Gastrointestinal Disorders, No Hx Renal Disease, No Hx Deep Vein Thrombosis, No Hx Diabetes Mellitus Type 1, No Hx Diabetes Mellitus Type 2 and No Hx Polycystic Ovarian Syndrome History of Present Illness HPI Narrative The patient is a 24-year-old -0-0-1 presents for a return Care OB Visit Log OB Flowsheet Initial Weight: Not Recorded Date -?-?-?-?-?-?-?-?-?-?-?-?- EGA Weight BP Alb Glu CTX Pres Fundal ht FHR Mov Dilation Station Effacement Hx Notes Visit Note 08/19/24 -?-?-?-?-?-?-?-?-?-?-?-?- 8w 5d 80.002 kg 112/78 140 09/11/24 -?-?-?-?-?-?-?-?-?-?-?-?- 12w 0d 78.528 kg 102/69 12 160 10/14/24 -?-?-?-?-?-?-?-?-?-?-?--?- 16w 5d 78.642 kg 120/76 16 150 active 11/13/24 -?-?-?-?-?-?-?-?-?-?-?-?- 21w 0d 79.095 kg 135/81 22 140 active Patient is doing well she is almost back up to her first weight. She has an ultrasound scheduled this week at [facility] for structural survey. Patient knows it is a boy. She will name Ricky. No bleeding or contractions. Good movement. 12/16/24 -?-?-?-?-?-?-?-?-?-?-?-?- 25w 5d 80.343 kg 110/71 25 active No contractions no loss of fluids doing well. Glucose challenge test ordered. ALLEGRA Calculator Estimated Delivery Date Method Current WG Current Estimate 03/26/25 Ultrasound #1 25w 5d Comments: NIPT 46XX. Structural survey within normal limits on chart Expected Delivery Route/Plan x 1 anticipate will want epidural Specific Issue/Plans Rh-. Will need RhoGAM. Notes Visit Date: 10/14/24 Last Updated by: Ellen Aviles (OB Clinic)MD Patient reports some flutters. No vaginal bleeding no cramping. She states she has lost about 10 pounds this but now her appetite is much better. She is set for structural survey in 4 weeks. Office Procedures OB Clinic LOC & Office Proc's Nursing/Assessment Patient Status: Established Patient OB Clinic Nursing Assessment: Medication Reconciliation, Update PMH in EMR and Vital Signs OB Clinic Coordination of Care: Complex Care and Chronic Disease 1-5, Consent,records obtained, informed consent, Education Simp Pt/Fam and Staff clarify orders Special Needs: Heart tones Established Patient Charge Established Patient Point Assignment: 115 Established Patient Point Charge: EP Level 3 (80-115)
== END 2024-12-16 10:17 | disposition home or self-care (01) ==
LOC: HODSOBC 09:25
PROVIDERS: PCP Family Medicine; Referring Provider Family Medicine; Supervising Provider Obstetrics & Gynecology; Visit Provider Obstetrics & Gynecology
DX: Z34.82 Encounter for supervision of other normal pregnancy, second trimester (principal); Z3A.25 25 weeks gestation of pregnancy
CPT/HCPCS: 99213; G0463

== ENCOUNTER 2025-01-22 09:22 | Outpatient (AMB) | payer MEDICAID, SELFPAY ==
[2025-01-22 09:35] VITALS: BP 111/77; PULSE 85; RESP 17; TEMP 36.6; O2SAT 98; BMI 28.7
--- NOTE | 2025-01-22 09:35 | AMB.OBVISIT ---
Vital Signs 01/22/25 09:35 Height 1.68 m Height Method Stated Weight 80.966 kg Weight Measurement Method Standing Scale BMI 28.7 BP 111/77 Blood Pressure Source Automatic Cuff Blood Pressure Location Right Upper Arm Position Sitting Respiration 17 Pulse 85 Pulse Source Monitor Temp 97.8 F Temp Source Temporal Artery Scan Pulse Oximetry (%) 98 Oxygen Delivery Method Room Air Allergies/Home Meds Allergies & Medications Allergies No Known Allergies Allergy (Verified 01/22/25 09:36) Medication Reconciliation vit no.95-ferrous fumarate 28 mg-folic acid 800 mcg tablet () 1 tab PO QDAY 02/13/23 [History Confirmed 01/22/25] Intake Visit Data Collection New Patient or Established: Established Patient (seen at [facility] within 3 years) Reason for Visit:: OBC 31W 0D Seen by Clinical Staff ONLY (RN/MA): No 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 1. Little interest or pleasure in doing things: not at all 2. Feeling down, depressed, or hopeless: not at all Total score: 0 PHQ-9 3. Trouble falling or staying asleep, or sleeping too much: Not at all 4. Feeling tired or having little energy: Not at all 5. Poor appetite or overeating: Not at all 6. Feeling bad about yourself - or that you are a failure or have let yourself or your family down: Not at all 7. Trouble concentrating on things, such as reading the newspaper or watching television: Not at all 8. Moving or speaking so slowly that other people could have noticed? - Or the opposite - being so fidgety or restless that you have been moving around a lot more than usual: not at all 9. Thoughts that you would be better off or of hurting yourself in some way: Not at all Total score: 0 If you checked off any problems, how difficult have these problems made it for you to do your work, take care of things at home, or get along with other people?: not difficult at all Source: Developed by Drs. Drew West, Olinda Valente, Wilbert Jamison and colleagues, with an educational delroy from [employer]. Depression screen completed yes Social History Living Situation History Marital Status: Life Partner Lives With: Family Housing: House Housing Other:: Has a 1-1/2-year-old child at home. a girl. 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 Past Medical History: No Hx Neurological Disorders, No Hx Hypothyroidism, No Hx Hyperthyroidism, No Hx Breast Cancer, No Hx Cardiac Disorders, No Hx Hypertension, No Hx Blood Disorders, No Hx Anemia, No Hx Gastrointestinal Disorders, No Hx Renal Disease, No Hx Deep Vein Thrombosis, No Hx Diabetes Mellitus Type 1, No Hx Diabetes Mellitus Type 2 and No Hx Polycystic Ovarian Syndrome Care OB Visit Log OB Flowsheet Initial Weight: 78 kg Date <del>?</del> EGA Weight BP Alb Glu CTX Pres Fundal ht FHR Mov Dilation Station Effacement Hx Notes Visit Note 08/19/24 <del>?</del> 8w 5d 80.002 kg (+2002.354 g) 112/78 140 09/11/24 <del>?</del> 12w 0d 78.528 kg (+528.179 g) 102/69 12 160 10/14/24 <del>?</del> 16w 5d 78.642 kg (+641.577 g) 120/76 16 150 active 11/13/24 <del>?</del> 21w 0d 79.095 kg (+1095.169 g) 135/81 22 140 active Patient is doing well she is almost back up to her first weight. She has an ultrasound scheduled this week at [facility] for structural survey. Patient knows it is a boy. She will name Ricky. No bleeding or contractions. Good movement. 12/16/24 <del>?</del> 25w 5d 80.343 kg (+2342.548 g) 110/71 25 active No contractions no loss of fluids doing well. Glucose challenge test ordered. 01/22/25 <del>?</del> 31w 0d 80.966 kg (+2966.238 g) 111/77 30 137 active +FM, No UCS No VB Elevated GCT, for GTT RhoGAM today ALLEGRA Calculator Estimated Delivery Date Method Current WG Current Estimate 03/26/25 Ultrasound #1 31w 0d Expected Delivery Route/Plan x 1 anticipate will want epidural Specific Issue/Plans Rh-. Will need RhoGAM. Notes Visit Date: 01/22/25 Last Updated by: Ellen Aviles (OB Clinic)MD labs O- /rubella immune/ RPR nonreactive/ hepatitis B surface antigen negative/hep B negative/ hep C negative/ GC negative /Chlamydia negative Visit Date: 10/14/24 Last Updated by: Ellen Aviles (OB Clinic)MD Patient reports some flutters. No vaginal bleeding no cramping. She states she has lost about 10 pounds this but now her appetite is much better. She is set for structural survey in 4 weeks. Office Procedures OB Clinic LOC & Office Proc's Nursing/Assessment Patient Status: Established Patient OB Clinic Nursing Assessment: Medication Reconciliation, Update PMH in EMR and Vital Signs OB Clinic Coordination of Care: Complex Care and Chronic Disease 1-5, Consent,records obtained, informed consent, Education Simp Pt/Fam and Staff clarify orders Special Needs: Heart tones Established Patient Charge Established Patient Point Assignment: 115 Established Patient Point Charge: EP Level 3 (80-115) Injection/Vaccine Admin SQ Im Injection: Yes Office Meds Rhophylac 1,500 unit (300 mcg)/2 mL injection syringe Performing Provider: Ellen Aviles (OB Clinic)MD 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
== END 2025-01-22 10:15 | disposition home or self-care (01) ==
LOC: HODSOBC 09:22
PROVIDERS: PCP Family Medicine; Referring Provider Family Medicine; Supervising Provider Obstetrics & Gynecology; Visit Provider Obstetrics & Gynecology
DX: O09.893 Supervision of other high risk pregnancies, third trimester (principal); O26.893 Other specified pregnancy related conditions, third trimester; Z67.41 Type O blood, Rh negative; Z3A.31 31 weeks gestation of pregnancy
CPT/HCPCS: 96372; 99213; J3490; G0463; J2791

== ENCOUNTER 2025-02-12 08:55 | Outpatient (AMB) | payer MEDICAID, SELFPAY ==
[2025-02-12 09:05] VITALS: BP 130/70; PULSE 80; RESP 16; TEMP 36.6; O2SAT 98; BMI 29.1
--- NOTE | 2025-02-12 09:05 | OBCLNT_ITS ---
Vital Signs 02/12/25 09:05 Height 1.68 m Height Method Stated Weight 82.214 kg Weight Measurement Method Standing Scale BMI 29.1 BP 130/70 Blood Pressure Source Automatic Cuff Blood Pressure Location Left Upper Arm Position Sitting Respiration 16 Pulse 80 Pulse Source Monitor Temp 97.8 F Temp Source Oral Pulse Oximetry (%) 98 Oxygen Delivery Method Room Air Allergies/Home Meds Allergies & Medications Allergies No Known Allergies Allergy (Verified 02/12/25 09:06) Medication Reconciliation vit no.95-ferrous fumarate 28 mg-folic acid 800 mcg tablet () 1 tab PO QDAY 02/13/23 [History Confirmed 02/12/25] Intake Visit Data Collection New Patient or Established: Established Patient (seen at [facility] within 3 years) Reason for Visit:: CARE Seen by Clinical Staff ONLY (RN/MA): No Testing Tech Required: No Do You Feel Safe at Home: Yes Authorities Contacted: N/A PCP or OBGYN visit in last 3 months: Yes Hx Now: Yes Are you currently on any form of Control: No Pain Present Currently: No Pain Scale Used: Hood-Roldan/Numerical Pain scale:: 0 Smoking Status Smoking Status: Never smoker Questionnaires Covid-19 Vaccine Questionnaire Has patient been vacinated for Covid-19 Have you been vacinated for Covid-19: Yes PHQ-9 PHQ-2 Over the last 2 weeks, how often have you been bothered by any of the following problems? 1. Little interest or pleasure in doing things: not at all 2. Feeling down, depressed, or hopeless: not at all Total score: 0 PHQ-9 3. Trouble falling or staying asleep, or sleeping too much: Not at all 4. Feeling tired or having little energy: Not at all 5. Poor appetite or overeating: Not at all 6. Feeling bad about yourself - or that you are a failure or have let yourself or your family down: Not at all 7. Trouble concentrating on things, such as reading the newspaper or watching television: Not at all 8. Moving or speaking so slowly that other people could have noticed? - Or the opposite - being so fidgety or restless that you have been moving around a lot more than usual: not at all 9. Thoughts that you would be better off or of hurting yourself in some way: Not at all Total score: 0 Source: Developed by Drs. Drew West, Olinda Valente, Wilbert Jamison and colleagues, with an educational delroy from [employer]. Depression screen completed yes Social History Living Situation History Lives With: Family Housing: House Housing Other:: Has a 1-1/2-year-old child at home. a girl. 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-?-?-?-?- EGA Weight BP Alb Glu CTX Pres Fundal ht FHR Mov Dilation Station Effacement Hx Notes Visit Note 08/19/24 -?-?-?-?-?-?-?-?-?-?-?-?- 8w 5d 80.002 kg (+2002.354 g) 112/78 140 09/11/24 -?-?-?-?-?-?-?-?-?-?-?-?- 12w 0d 78.528 kg (+528.179 g) 102/69 12 160 10/14/24 -?-?-?-?-?-?-?-?-?-?-?-?- 16w 5d 78.642 kg (+641.577 g) 120/76 16 150 active 11/13/24 -?-?-?-?-?-?-?-?-?-?-?-?- 21w 0d 79.095 kg (+1095.169 g) 135/81 22 140 active Patient is doing well she is almost back up to her first weight. She has an ultrasound scheduled this week at [facility] for structural survey. Patient knows it is a boy. She will name Ricky. No bleeding or contractions. Good movement. 12/16/24 -?-?-?-?-?-?-?-?-?-?-?-?- 25w 5d 80.343 kg (+2342.548 g) 110/71 25 active No contractions no loss of fluids doing well. Glucose challenge test ordered. 01/22/25 -?-?-?-?-?-?-?-?-?-?-?-?- 31w 0d 80.966 kg (+2966.238 g) 111/77 30 137 active +FM, No UCS No VB Elevated GCT, for GTT RhoGAM today 02/12/25 -?-?-?-?-?-?-?-?-?-?-?-?- 34w 0d 82.214 kg (+4213.617 g) 130/70 absent 34 145 active Good movement no contractions no vaginal bleeding GTT normal. Had RhoGAM. Need ultrasound for size and dates. This was authorized. ALLEGRA Calculator Estimated Delivery Date Method Current WG Current Estimate 03/26/25 Ultrasound #1 34w 0d Expected Delivery Route/Plan x 1 anticipate will want epidural Specific Issue/Plans Rh-. Will need RhoGAM. Notes Visit Date: 02/12/25 Last Updated by: Ellen Aviles (OB Clinic)MD Failed 1 hour glucose, passed 3-hour glucose. Need ultrasound for size and dates. Visit Date: 01/22/25 Last Updated by: Ellen Aviles (OB Clinic)MD labs O- /rubella immune/ RPR nonreactive/ hepatitis B surface antigen negative/hep B negative/ hep C negative/ GC negative /Chlamydia negative Visit Date: 10/14/24 Last Updated by: Ellen Aviles (OB Clinic)MD Patient reports some flutters. No vaginal bleeding no cramping. She states she has lost about 10 pounds this but now her appetite is much better. She is set for structural survey in 4 weeks. Office Procedures OB Clinic LOC & Office Proc's Nursing/Assessment Patient Status: Established Patient OB Clinic Nursing Assessment: Medication Reconciliation, Update PMH in EMR and Vital Signs OB Clinic Coordination of Care: Complex Care and Chronic Disease 1-5, Con sent,records obtained, informed consent, Education Simp Pt/Fam, 1 Ins Authorization, Lab and Imaging orders, Results/Orders obtained and Staff clarify orders Special Needs: Heart tones Established Patient Charge Established Patient Point Assignment: 150 Established Patient Point Charge: EP Level 4 (120-155) Assessment & Plan Diagnosis / Problem List (1) : Status: Acute Qualifiers: Weeks of gestation: 34 weeks Qualified Code(s): Z3A.34 - 34 weeks gestation of Plan: Need ultrasound for size and dates. This is authorized and will be scheduled in a week. Need group B strep at next visit.
== END 2025-02-12 09:40 | disposition home or self-care (01) ==
LOC: HODSOBC 08:55
PROVIDERS: Supervising Provider Obstetrics & Gynecology; Visit Provider Obstetrics & Gynecology
DX: Z34.83 Encounter for supervision of other normal pregnancy, third trimester (principal); Z3A.34 34 weeks gestation of pregnancy
CPT/HCPCS: 99214; G0463

== ENCOUNTER 2025-02-16 08:21 | Outpatient (AMB) | payer MEDICAID, SELFPAY ==
[2025-02-16 08:31] VITALS: BP 114/74; PULSE 87; RESP 17; TEMP 36.4; O2SAT 95; BMI 29.0
--- NOTE | 2025-02-16 08:31 | AMB.OBVISIT ---
Vital Signs 02/16/25 08:31 Height 1.68 m Height Method Measured Weight 82.1 kg Weight Measurement Method Standing Scale BMI 29.0 BP 114/74 Blood Pressure Source Automatic Cuff Blood Pressure Location Right Upper Arm Position Sitting Respiration 17 Pulse 87 Pulse Source Monitor Temp 97.5 F Temp Source Temporal Artery Scan Pulse Oximetry (%) 95 Oxygen Delivery Method Room Air Allergies/Home Meds Allergies & Medications Allergies No Known Allergies Allergy (Verified 02/16/25 08:32) Medication Reconciliation vit no.95-ferrous fumarate 28 mg-folic acid 800 mcg tablet () 1 tab PO QDAY 02/13/23 [History Confirmed 02/16/25] Intake Visit Data Collection New Patient or Established: Established Patient (seen at [facility] within 3 years) Reason for Visit:: OBC Consent obtained for Telemed Visit: No Seen by Clinical Staff ONLY (RN/MA): No 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 1. Little interest or pleasure in doing things: not at all PHQ-9 8. Moving or speaking so slowly that other people could have noticed? - Or the opposite - being so fidgety or restless that you have been moving around a lot more than usual: not at all Source: Developed by Drs. Drew West, Olinda Valente, Wilbert Jamison and colleagues, with an educational delroy from [employer]. Social History Living Situation History Lives With: Family Housing: House Housing Other:: Has a 1-1/2-year-old child at home. a girl. 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 Past Medical History: No Hx Neurological Disorders, No Hx Hypothyroidism, No Hx Hyperthyroidism, No Hx Breast Cancer, No Hx Cardiac Disorders, No Hx Hypertension, No Hx Blood Disorders, No Hx Anemia, No Hx Gastrointestinal Disorders, No Hx Renal Disease, No Hx Deep Vein Thrombosis, No Hx Diabetes Mellitus Type 1, No Hx Diabetes Mellitus Type 2 and No Hx Polycystic Ovarian Syndrome Care OB Visit Log OB Flowsheet Initial Weight: 78 kg Date <del>?</del> EGA Weight BP Alb Glu CTX Pres Fundal ht FHR Mov Dilation Station Effacement Hx Notes Visit Note 08/19/24 <del>?</del> 8w 5d 80.002 kg (+2002.354 g) 112/78 140 09/11/24 <del>?</del> 12w 0d 78.528 kg (+528.179 g) 102/69 12 160 10/14/24 <del>?</del> 16w 5d 78.642 kg (+641.577 g) 120/76 16 150 active 11/13/24 <del>?</del> 21w 0d 79.095 kg (+1095.169 g) 135/81 22 140 active Patient is doing well she is almost back up to her first weight. She has an ultrasound scheduled this week at [facility] for structural survey. Patient knows it is a boy. She will name Ricky. No bleeding or contractions. Good movement. 12/16/24 <del>?</del> 25w 5d 80.343 kg (+2342.548 g) 110/71 25 active No contractions no loss of fluids doing well. Glucose challenge test ordered. 01/22/25 <del>?</del> 31w 0d 80.966 kg (+2966.238 g) 111/77 30 137 active +FM, No UCS No VB Elevated GCT, for GTT RhoGAM today 02/12/25 <del>?</del> 34w 0d 82.214 kg (+4213.617 g) 130/70 absent 34 145 active Good movement no contractions no vaginal bleeding GTT normal. Had RhoGAM. Need ultrasound for size and dates. This was authorized. 02/16/25 <del>?</del> 34w 4d 82.1 kg (+4100.219 g) 114/74 absent cephalic 34 active ALLEGRA Calculator Estimated Delivery Date Method Current WG Current Estimate 03/26/25 Ultrasound #1 34w 4d Expected Delivery Route/Plan x 1 anticipate will want epidural Specific Issue/Plans Rh-. Will need RhoGAM. Notes Visit Date: 02/12/25 Last Updated by: Ellen Aviles (OB Clinic)MD Failed 1 hour glucose, passed 3-hour glucose. Need ultrasound for size and dates. Visit Date: 01/22/25 Last Updated by: Ellen Aviles (OB Clinic)MD labs O- /rubella immune/ RPR nonreactive/ hepatitis B surface antigen negative/hep B negative/ hep C negative/ GC negative /Chlamydia negative Visit Date: 10/14/24 Last Updated by: Ellen Aviles (OB Clinic)MD Patient reports some flutters. No vaginal bleeding no cramping. She states she has lost about 10 pounds this but now her appetite is much better. She is set for structural survey in 4 weeks. Office Procedures OB Clinic LOC & Office Proc's Nursing/Assessment Patient Status: Established Patient OB Clinic Nursing Assessment: Medication Reconciliation, Update PMH in EMR and Vital Signs OB Clinic Coordination of Care: Complex Care and Chronic Disease 1-5, Consent,records obtained, informed consent, Education Simp Pt/Fam and Results/Orders obtained Special Needs: Heart tones Established Patient Charge Established Patient Point Assignment: 110 Established Patient Point Charge: EP Level 3 (80-115)
== END 2025-02-16 09:08 | disposition home or self-care (01) ==
PROVIDERS: Supervising Provider Obstetrics & Gynecology; Visit Provider Obstetrics & Gynecology
DX: Z34.83 Encounter for supervision of other normal pregnancy, third trimester (principal); Z3A.34 34 weeks gestation of pregnancy
CPT/HCPCS: 99213; G0463

== ENCOUNTER → 2025-02-23 | Outpatient (CLI) | payer MEDICAID, SELFPAY ==
--- NOTE | 2025-02-23 13:00 | XR_ITS ---
Examination: Complete OB ultrasound greater than 14 weeks Date and time of exam: February 23, 2025 at 1307 hours INDICATIONS: Diagnosis small for gestational age. Findings: Viable intrauterine single fetus with single amniotic sac presentation cephalic Cardiac motion 157 BPM Placenta anterior grade 2 Umbilical cord insertion seen. Amniotic fluid index 12.9 cm Cervix 3.7 cm. Ovaries obscured by bowel gas.. Composite estimated gestational age based on BPD, head circumference, abdominal circumference, femur length is 36 weeks 3 days, estimated weight 2892 g. Survey of intracranial anatomy, spinal anatomy, abdominal anatomy, four-chamber heart performed with no abnormalities identified. Impression: Viable intrauterine gestation cephalic presentation.
== END | disposition home or self-care (01) ==
LOC: CDIM 12:46
PROVIDERS: PCP Family Medicine; Referring Provider Obstetrics & Gynecology; Visit Provider Obstetrics & Gynecology
DX: O36.5990 Maternal care for other known or suspected poor fetal growth, unspecified trimester, not applicable or unspecified (principal); Z3A.36 36 weeks gestation of pregnancy
CPT/HCPCS: 76805

== ENCOUNTER 2025-02-26 09:28 | Outpatient (AMB) | payer MEDICAID, SELFPAY ==
[2025-02-26 09:33] VITALS: BP 126/5; PULSE 73; RESP 17; TEMP 36.5; O2SAT 98; BMI 29.2
--- NOTE | 2025-02-26 09:33 | OBCLNT_ITS ---
Vital Signs 02/26/25 09:33 Height 1.68 m Height Method Measured Weight 82.724 kg Weight Measurement Method Standing Scale BMI 29.2 BP 126/5 L Blood Pressure Source Automatic Cuff Blood Pressure Location Right Upper Arm Position Sitting Respiration 17 Pulse 73 Pulse Source Monitor Temp 97.7 F Temp Source Temporal Artery Scan Pulse Oximetry (%) 98 Oxygen Delivery Method Room Air Allergies/Home Meds Allergies & Medications Allergies No Known Allergies Allergy (Verified 02/26/25 09:34) Medication Reconciliation vit no.95-ferrous fumarate 28 mg-folic acid 800 mcg tablet () 1 tab PO QDAY 02/13/23 [History Confirmed 02/26/25] Intake Visit Data Collection New Patient or Established: Established Patient (seen at [facility] within 3 years) Reason for Visit:: OBC Consent obtained for Telemed Visit: No Seen by Clinical Staff ONLY (RN/MA): No Title Vehicle Service Attendant Required: No Do You Feel Safe at Home: Yes Authorities Contacted: N/A PCP or OBGYN visit in last 3 months: Yes Date of Last PCP or OBGYN visit: 02/16/25 Hx Now: Yes Are you currently on any form of Control: No Pain Present Currently: No Pain Scale Used: Hood-Roldan/Numerical Pain scale:: 0 Smoking Status Smoking Status: Never smoker Questionnaires Covid-19 Vaccine Questionnaire Has patient been vacinated for Covid-19 Have you been vacinated for Covid-19: Yes PHQ-9 PHQ-2 Over the last 2 weeks, how often have you been bothered by any of the following problems? 1. Little interest or pleasure in doing things: not at all PHQ-9 8. Moving or speaking so slowly that other people could have noticed? - Or the opposite - being so fidgety or restless that you have been moving around a lot more than usual: not at all Source: Developed by Drs. Drew West, Olinda Valente, Wilbert Jamison and colleagues, with an educational delroy from [employer]. Social History Living Situation History Lives With: Family Housing: House Housing Other:: Has a 1-1/2-year-old child at home. a girl. 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 Past Medical History: No Hx Neurological Disorders, No Hx Hypothyroidism, No Hx Hyperthyroidism, No Hx Breast Cancer, No Hx Cardiac Disorders, No Hx Hypertension, No Hx Blood Disorders, No Hx Anemia, No Hx Gastrointestinal Disorders, No Hx Renal Disease, No Hx Deep Vein Thrombosis, No Hx Diabetes Mellitus Type 1, No Hx Diabetes Mellitus Type 2 and No Hx Polycystic Ovarian Syndrome Care OB Visit Log OB Flowsheet Initial Weight: 78 kg Date -?-?-?-?-?-?-?-?-?-?-?-?- EGA Weight BP Alb Glu CTX Pres Fundal ht FHR Mov Dilation Station Effacement Hx Notes Visit Note 08/19/24 -?-?-?-?-?-?-?-?-?-?-?-?- 8w 5d 80.002 kg (+2002.354 g) 112/78 140 09/11/24 -?-?-?-?-?-?-?-?-?-?-?-?- 12w 0d 78.528 kg (+528.179 g) 102/69 12 160 10/14/24 -?-?-?-?-?-?-?-?-?-?-?-?- 16w 5d 78.642 kg (+641.577 g) 120/76 16 150 active 11/13/24 -?-?-?-?-?-?-?-?-?-?-?-?- 21w 0d 79.095 kg (+1095.169 g) 135/81 22 140 active Patient is doing well she is almost back up to her first weight. She has an ultrasound scheduled this week at [facility] for structural survey. Patient knows it is a boy. She will name Ricky. No bleeding or contractions. Good movement. 12/16/24 -?-?-?-?-?-?-?-?-?-?-?-?- 25w 5d 80.343 kg (+2342.548 g) 110/71 25 active No contractions no loss of fluids doing well. Glucose challenge test ordered. 01/22/25 -?-?-?-?-?-?-?-?-?-?-?-?- 31w 0d 80.966 kg (+2966.238 g) 111/77 30 137 active +FM, No UCS No VB Elevated GCT, for GTT RhoGAM today 02/12/25 -?-?-?-?-?-?-?-?-?-?-?-?- 34w 0d 82.214 kg (+4213.617 g) 130/70 absent 34 145 active Good movement no contractions no vaginal bleeding GTT normal. Had RhoGAM. Need ultrasound for size and dates. This was authorized. 02/16/25 -?-?-?-?-?-?-?-?-?-?-?-?- 34w 4d 82.1 kg (+4100.219 g) 114/74 absent cephalic 34 active 02/26/25 -?-?-?-?-?-?-?-?-?-?-?-?- 36w 0d 82.724 kg (+4723.908 g) 126/5 absent cephalic 34 145 act jennifer Good movement. Denies leaking, denies bleeding, denies contractions. Increased [place] Pina pressure. Slight backache. Patient is doing well GBS today. Discussed labor precautions kick count twice a day. Increase fluids. Return a week OB check ALLEGRA Calculator Estimated Delivery Date Method Current WG Current Estimate 03/26/25 Ultrasound #1 36w 0d Expected Delivery Route/Plan x 1 anticipate will want epidural Specific Issue/Plans Rh-. Will need RhoGAM. Notes Visit Date: 02/12/25 Last Updated by: Ellen Aviles ([facility] Clinic)MD Failed 1 hour glucose, passed 3-hour glucose. Need ultrasound for size and dates. Visit Date: 01/22/25 Last Updated by: Ellen Aviles (OB Clinic)MD labs O- /rubella immune/ RPR nonreactive/ hepatitis B surface antigen negative/hep B negative/ hep C negative/ GC negative /Chlamydia negative Visit Date: 10/14/24 Last Updated by: Ellen Aviles (OB Clinic)MD Patient reports some flutters. No vaginal bleeding no cramping. She states she has lost about 10 pounds this but now her appetite is much better. She is set for structural survey in 4 weeks. Office Procedures OB Clinic LOC & Office Proc's Nursing/Assessment Patient Status: Established Patient OB Clinic Nursing Assessment: Medication Reconciliation, Update PMH in EMR and Vital Signs OB Clinic Coordination of Care: Complex Care and Chronic Disease 1-5, Consent,records obtained, informed consent, Education Simp Pt/Fam and Lab and Imaging orders Special Needs: Heart tones Established Patient Charge Established Patient Point Assignment: 120 Established Patient Point Charge: EP Level 4 (120-155) Assessment & Plan Diagnosis / Problem List (1) Encounter for supervision of high risk in third trimester, antepartum: Status: Acute Plan GBS today. Discussed labor precautions. Kick counts twice a day. Increase fluids. Return a week OB check Additional Plan Follow Up: 1 Week (obc)
== END 2025-02-26 09:56 | disposition home or self-care (01) ==
LOC: HODSOBC 09:28
PROVIDERS: Supervising Provider Advanced Practice Midwife; Visit Provider Advanced Practice Midwife
DX: O09.93 Supervision of high risk pregnancy, unspecified, third trimester (principal); Z3A.36 36 weeks gestation of pregnancy; Z36.85 Encounter for antenatal screening for Streptococcus B
CPT/HCPCS: 99214; G0463

== ENCOUNTER 2025-03-04 08:54 | Outpatient (AMB) | payer MEDICAID, SELFPAY ==
[2025-03-04 09:26] VITALS: BP 137/81; PULSE 83; RESP 16; TEMP 36.2; O2SAT 98; BMI 29.2
--- NOTE | 2025-03-04 09:26 | OBCLNT_ITS ---
Vital Signs 03/04/25 09:26 Height 1.68 m Height Method Stated Weight 82.611 kg Weight Measurement Method Standing Scale BMI 29.2 BP 137/81 H Blood Pressure Source Automatic Cuff Blood Pressure Location Left Upper Arm Position Sitting Respiration 16 Pulse 83 Pulse Source Monitor Temp 97.2 F Temp Source Oral Pulse Oximetry (%) 98 Oxygen Delivery Method Room Air Allergies/Home Meds Allergies & Medications Allergies No Known Allergies Allergy (Verified 03/04/25 09:27) Medication Reconciliation vit no.95-ferrous fumarate 28 mg-folic acid 800 mcg tablet () 1 tab PO QDAY 02/13/23 [History Confirmed 03/04/25] Intake Visit Data Collection New Patient or Established: Established Patient (seen at [facility] within 3 years) Reason for Visit:: OBC WEEKLY Seen by Clinical Staff ONLY (RN/MA): No 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 1. Little interest or pleasure in doing things: not at all 2. Feeling down, depressed, or hopeless: not at all Total score: 0 PHQ-9 3. Trouble falling or staying asleep, or sleeping too much: Not at all 4. Feeling tired or having little energy: Not at all 5. Poor appetite or overeating: Not at all 6. Feeling bad about yourself - or that you are a failure or have let yourself or your family down: Not at all 7. Trouble concentrating on things, such as reading the newspaper or watching television: Not at all 8. Moving or speaking so slowly that other people could have noticed? - Or the opposite - being so fidgety or restless that you have been moving around a lot more than usual: not at all 9. Thoughts that you would be better off or of hurting yourself in some way: Not at all Total score: 0 If you checked off any problems, how difficult have these problems made it for you to do your work, take care of things at home, or get along with other people?: not difficult at all Source: Developed by Drs. Drew West, Olinda Valente, Wilbert Jamison and colleagues, with an educational delroy from [employer]. Depression screen completed yes Social History Living Situation History Lives With: Family Housing: House Housing Other:: Has a 1-1/2-year-old child at home. a girl. 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 Past Medical History: No Hx Neurological Disorders, No Hx Hypothyroidism, No Hx Hyperthyroidism, No Hx Breast Cancer, No Hx Cardiac Disorders, No Hx Hypertension, No Hx Blood Disorders, No Hx Anemia, No Hx Gastrointestinal Disorders, No Hx Renal Disease, No Hx Deep Vein Thrombosis, No Hx Diabetes Mellitus Type 1, No Hx Diabetes Mellitus Type 2 and No Hx Polycystic Ovarian Syndrome Care OB Visit Log OB Flowsheet Initial Weight: 78 kg Date -?-?-?-?-?-?-?-?-?-?-?-?- EGA Weight BP Alb Glu CTX Pres Fundal ht FHR Mov Dilation Station Effacement Hx Notes Visit Note 08/19/24 -?-?-?-?-?-?-?-?-?-?-?-?- 8w 5d 80.002 kg (+2002.354 g) 112/78 140 09/11/24 -?-?-?-?-?-?-?-?-?-?-?-?- 12w 0d 78.528 kg (+528.179 g) 102/69 12 160 10/14/24 -?-?-?-?-?--?-?-?-?-?-?-?- 16w 5d 78.642 kg (+641.577 g) 120/76 16 150 active 11/13/24 -?-?-?-?-?-?-?-?-?-?-?-?- 21w 0d 79.095 kg (+1095.169 g) 135/81 22 140 active Patient is doing well she is almost back up to her first weight. She has an ultrasound scheduled this week at [facility] for structural survey. Patient knows it is a boy. She will name Ricky. No bleeding or contractions. Good movement. 12/16/24 -?-?--?-?-?-?-?-?-?-?-?-?- 25w 5d 80.343 kg (+2342.548 g) 110/71 25 active No contractions no loss of fluids doing well. Glucose challenge test ordered. 01/22/25 -?-?-?-?-?-?-?-?-?-?-?-?- 31w 0d 80.966 kg (+2966.238 g) 111/77 30 137 active +FM, No UCS No VB Elevated GCT, for GTT RhoGAM today 02/12/25 -?-?-?-?-?-?-?-?-?-?-?-?- 34w 0d 82.214 kg (+4213.617 g) 130/70 absent 34 145 active Good movement no contractions no vaginal bleeding GTT normal. Had RhoGAM. Need ultrasound for size and dates. This was authorized. 02/16/25 -?-?-?-?--?-?-?-?-?-?-?-?- 34w 4d 82.1 kg (+4100.219 g) 114/74 absent cephalic 34 active 02/26/25 -?-?-?-?-?-?-?-?-?-?-?-?- 36w 0d 82.724 kg (+4723.908 g) 126/5 absent cephalic 34 145 act jennifer Good movement. Denies leaking, denies bleeding, denies contractions. Increased [place] Pina pressure. Slight backache. Patient is doing well GBS today. Discussed labor precautions kick count twice a day. Increase fluids. Return a week OB check 03/04/25 -?-?-?-?-?-?-?-?-?-?-?-?- 36w 6d 82.611 kg (+4610.51 g) 137/81 occasional cephalic 36 146 absent Good movement. Denies leaking. Denies contractions. No bleeding. Increased pressure.. Discussed GBS. Labor precautions. Discussed danger signs symptoms and ER precautions with parameters. Kick count twice a day. Increase fluids. Continue prenatals. Return a week OB check ALLEGRA Calculator Estimated Delivery Date Method Current WG Current Estimate 03/26/25 Ultrasound #1 36w 6d Other Estimates 03/20/25 Ultrasound #2 37w 5d 03/19/25 Manual 37w 6d sono done 5, IUP was 21w5 Expected Delivery Route/Plan x 1 anticipate will want epidural Specific Issue/Plans Rh-. Will need RhoGAM. Notes Visit Date: 02/12/25 Last Updated by: Ellen Aviles ([facility] Clinic)MD Failed 1 hour glucose, passed 3-hour glucose. Need ultrasound for size and dates. Visit Date: 01/22/25 Last Updated by: Ellen Aviles (OB Clinic)MD labs O- /rubella immune/ RPR nonreactive/ hepatitis B surface antigen negative/hep B negative/ hep C negative/ GC negative /Chlamydia negative Visit Date: 10/14/24 Last Updated by: Ellen Aviles ([facility] Clinic)MD Patient reports some flutters. No vaginal bleeding no cramping. She states she has lost about 10 pounds this but now her appetite is much better. She is set for structural survey in 4 weeks. Office Procedures OB Clinic LOC & Office Proc's Nursing/Assessment Patient Status: Established Patient OB Clinic Nursing Assessment: Medication Reconciliation, Update PMH in EMR and Vital Signs OB Clinic Coordination of Care: Education Complex Pt/Fam, Consent,records obtained, informed consent, Lab and Imaging orders, Results/Orders obtained and Staff clarify orders Special Needs: Heart tones Established Patient Charge Established Patient Point Assignment: 115 Established Patient Point Charge: EP Level 3 (80-115) Assessment & Plan Diagnosis / Problem List (1) Encounter for supervision of high risk in third trimester, antepartum: Status: Acute Plan Discussed labor precautions. Discussed kick count twice a day. Continue prenatals. Increase fluids. Discussed danger signs symptoms and ER precautions with parameters. Return week OB check Additional Plan Follow Up: 1 Week (obc)
== END 2025-03-04 09:48 | disposition home or self-care (01) ==
LOC: HODSOBC 08:54
PROVIDERS: Supervising Provider Advanced Practice Midwife; Visit Provider Advanced Practice Midwife
DX: O09.93 Supervision of high risk pregnancy, unspecified, third trimester (principal); Z3A.36 36 weeks gestation of pregnancy
CPT/HCPCS: 99213; G0463

== ENCOUNTER 2025-03-15 08:25 | Outpatient (AMB) | payer MEDICAID, SELFPAY ==
[2025-03-15 08:42] VITALS: BP 137/88; PULSE 70; RESP 16; TEMP 36.3; O2SAT 98; BMI 29.4
--- NOTE | 2025-03-15 08:42 | AMB.OBVISIT ---
Vital Signs 03/15/25 08:42 Height 1.68 m Height Method Stated Weight 83.064 kg Weight Measurement Method Standing Scale BMI 29.4 BP 137/88 H Blood Pressure Source Automatic Cuff Blood Pressure Location Left Upper Arm Position Sitting Respiration 16 Pulse 70 Pulse Source Monitor Temp 97.4 F Temp Source Oral Pulse Oximetry (%) 98 Oxygen Delivery Method Room Air Allergies/Home Meds Allergies & Medications Allergies No Known Allergies Allergy (Verified 03/15/25 08:43) Medication Reconciliation vit no.95-ferrous fumarate 28 mg-folic acid 800 mcg tablet () 1 tab PO QDAY 02/13/23 [History Confirmed 03/15/25] fluconazole 150 mg tablet 150 mg PO QDAY 3 days #3 tabs 03/15/25 [Rx] Intake Visit Data Collection New Patient or Established: Established Patient (seen at [facility] within 3 years) Reason for Visit:: CARE Seen by Clinical Staff ONLY (RN/MA): No 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 1. Little interest or pleasure in doing things: not at all 2. Feeling down, depressed, or hopeless: not at all Total score: 0 PHQ-9 3. Trouble falling or staying asleep, or sleeping too much: Not at all 4. Feeling tired or having little energy: Not at all 5. Poor appetite or overeating: Not at all 6. Feeling bad about yourself - or that you are a failure or have let yourself or your family down: Not at all 7. Trouble concentrating on things, such as reading the newspaper or watching television: Not at all 8. Moving or speaking so slowly that other people could have noticed? - Or the opposite - being so fidgety or restless that you have been moving around a lot more than usual: not at all 9. Thoughts that you would be better off or of hurting yourself in some way: Not at all Total score: 0 Source: Developed by Drs. Drew West, Olinda Valente, Wilbert Jamison and colleagues, with an educational delroy from [employer]. Depression screen completed yes Social History Living Situation History Lives With: Family Housing: House Housing Other:: Has a 1-1/2-year-old child at home. a girl. 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 Past Medical History: No Hx Neurological Disorders, No Hx Hypothyroidism, No Hx Hyperthyroidism, No Hx Breast Cancer, No Hx Cardiac Disorders, No Hx Hypertension, No Hx Blood Disorders, No Hx Anemia, No Hx Gastrointestinal Disorders, No Hx Renal Disease, No Hx Deep Vein Thrombosis, No Hx Diabetes Mellitus Type 1, No Hx Diabetes Mellitus Type 2 and No Hx Polycystic Ovarian Syndrome Care OB Visit Log OB Flowsheet Initial Weight: 78 kg Date <del>?</del> EGA Weight BP Alb Glu CTX Pres Fundal ht FHR Mov Dilation Station Effacement Hx Notes Visit Note 08/19/24 <del>?</del> 8w 5d 80.002 kg (+2002.354 g) 112/78 140 09/11/24 <del>?</del> 12w 0d 78.528 kg (+528.179 g) 102/69 12 160 10/14/24 <del>?</del> 16w 5d 78.642 kg (+641.577 g) 120/76 16 150 active 11/13/24 <del>?</del> 21w 0d 79.095 kg (+1095.169 g) 135/81 22 140 active Patient is doing well she is almost back up to her first weight. She has an ultrasound scheduled this week at [facility] for structural survey. Patient knows it is a boy. She will name Ricky. No bleeding or contractions. Good movement. 12/16/24 <del>?</del> 25w 5d 80.343 kg (+2342.548 g) 110/71 25 active No contractions no loss of fluids doing well. Glucose challenge test ordered. 01/22/25 <del>?</del> 31w 0d 80.966 kg (+2966.238 g) 111/77 30 137 active +FM, No UCS No VB Elevated GCT, for GTT RhoGAM today 02/12/25 <del>?</del> 34w 0d 82.214 kg (+4213.617 g) 130/70 absent 34 145 active Good movement no contractions no vaginal bleeding GTT normal. Had RhoGAM. Need ultrasound for size and dates. This was authorized. 02/16/25 <del>?</del> 34w 4d 82.1 kg (+4100.219 g) 114/74 absent cephalic 34 active 02/26/25 <del>?</del> 36w 0d 82.724 kg (+4723.908 g) 126/5 absent cephalic 34 145 active Good movement. Denies leaking, denies bleeding, denies contractions. Increased [place] Pina pressure. Slight backache. Patient is doing well GBS today. Discussed labor precautions kick count twice a day. Increase fluids. Return a week OB check 03/04/25 <del>?</del> 36w 6d 82.611 kg (+4610.51 g) 137/81 occasional cephalic 36 146 absent Good movement. Denies leaking. Denies contractions. No bleeding. Increased pressure.. Discussed GBS. Labor precautions. Discussed danger signs symptoms and ER precautions with parameters. Kick count twice a day. Increase fluids. Continue prenatals. Return a week OB check 03/15/25 <del>?</del> 38w 3d 83.064 kg (+5064.102 g) 137/88 occasional cephalic 38 145 active 1 -3 50 svE: L/Thick/high/post/soft. Reports good movement. Denies leaking or bleeding. Complains of vaginal discharge and itch. Per exam today patient's vagina red with white curdy discharge. NuSwab plus today. Diflucan 150 p.o. daily x 3. Discussed labor precautions and kick count. Increase fluids. Continue prenatals. Return in a week OB check ALLEGRA Calculator Estimated Delivery Date Method Current WG Current Estimate 03/26/25 Ultrasound #1 38w 3d Other Estimates 03/20/25 Ultrasound #2 39w 2d 03/19/25 Manual 39w 3d sono done 11/11/24, IUP was 21w5 Expected Delivery Route/Plan x 1 anticipate will want epidural Specific Issue/Plans Rh-. Will need RhoGAM. Notes Visit Date: 02/12/25 Last Updated by: Ellen Aviles (OB Clinic)MD Failed 1 hour glucose, passed 3-hour glucose. Need ultrasound for size and dates. Visit Date: 01/22/25 Last Updated by: Ellen Aviles (OB Clinic)MD labs O- /rubella immune/ RPR nonreactive/ hepatitis B surface antigen negative/hep B negative/ hep C negative/ GC negative /Chlamydia negative Visit Date: 10/14/24 Last Updated by: Ellen Aviles ([facility] Clinic)MD Patient reports some flutters. No vaginal bleeding no cramping. She states she has lost about 10 pounds this but now her appetite is much better. She is set for structural survey in 4 weeks. Office Procedures OB Clinic LOC & Office Proc's Nursing/Assessment Patient Status: Established Patient OB Clinic Nursing Assessment: Medication Reconciliation, Update PMH in EMR and Vital Signs OB Clinic Coordination of Care: Complex Care and Chronic Disease 1-5, Consent,records obtained, informed consent, Education Simp Pt/Fam, Lab and Imaging orders, Results/Orders obtained and Staff clarify orders Special Needs: Heart tones Established Patient Charge Established Patient Point Assignment: 135 Established Patient Point Charge: EP Level 4 (120-155) Assessment & Plan Diagnosis / Problem List (1) Encounter for supervision of high risk in third trimester, antepartum: Status: Acute (2) Vaginitis: Status: Acute Plan NuSwab plus today. Diflucan 150 p.o. daily x 3. Discussed labor precautions and kick count. Discussed danger signs symptoms and ER precautions. Increase fluids. Return in a week OB check Additional Plan Follow Up: 1 Week (obc)
== END 2025-03-15 09:19 | disposition home or self-care (01) ==
LOC: HODSOBC 08:25
PROVIDERS: Supervising Provider Advanced Practice Midwife; Visit Provider Advanced Practice Midwife
DX: O09.893 Supervision of other high risk pregnancies, third trimester (principal); O23.593 Infection of other part of genital tract in pregnancy, third trimester; N76.0 Acute vaginitis; Z3A.38 38 weeks gestation of pregnancy
CPT/HCPCS: 99214; G0463

== ENCOUNTER 2025-03-16 08:27 | Observation (INO) | payer MEDICAID, SELFPAY ==
[2025-03-16 08:37] VITALS: RESP 16; RESP 99; TEMP 36.7; BMI 29.6
[2025-03-16 08:42] VITALS: BP 129/86; PULSE 68
[2025-03-16 09:06] VITALS: BP 134/93; PULSE 60
== END 2025-03-16 09:10 | disposition home or self-care (01) ==
PROVIDERS: Admitting Provider Advanced Practice Midwife; Visit Provider Advanced Practice Midwife
DX: O36.8130 Decreased fetal movements, third trimester, not applicable or unspecified (principal); O26.893 Other specified pregnancy related conditions, third trimester; R51.9 Headache, unspecified; Z3A.39 39 weeks gestation of pregnancy
CPT/HCPCS: 59025; 59899

== ENCOUNTER 2025-03-17 01:27 | Inpatient (IN) | payer MEDICAID, SELFPAY ==
[2025-03-17] VITALS (125 sets, daily range): BP systolic 121–187; BP diastolic 59–96; PULSE 52–131; RESP 16–100; TEMP 36.4–37.9; O2SAT 85–100; BMI 29.9
[2025-03-17 03:09] LABS: Collection Type, Urine Clean Catch
[2025-03-17 03:11] LABS: Basophils # (Auto) 0.0 Thou/mm3 (0.0-0.2); Basophils % (Auto) 0 % (0-2.5); Eosinophils # (Auto) 0.0 Thou/mm3 (0.0-0.5); Eosinophils % (Auto) 0 % (0-10); Hematocrit 30.0 % (36.0-46.0); Hemoglobin 10.2 g/dL (12.0-16.0); Immature Granulocytes Auto 0.06 Thou/mm3 (0.00-0.00); Lymphocytes # (Auto) 1.8 Thou/mm3 (1.0-4.8); Lymphocytes % (Auto) 15 % (10-50); Mean Corpuscular HGB Conc 34.0 g/dl (31.0-37.0); Mean Corpuscular Hemoglobin 28.4 pg (25.0-35.0); Mean Corpuscular Volume 84 fL (80-100); Monocytes # (Auto) 0.6 Thou/mm3 (0.0-0.8); Monocytes % (Auto) 5 % (0-12); Neutrophils # (Auto) 9.3 Thou/mm3 (1.8-7.7); Neutrophils % (Auto) 79 % (37-80); Nucleated Red Blood Cell # 0.00 Thou/mm3 (0.00-0.00); Nucleated Red Blood Cell % 0 /100 WBC (0); Platelet Count 277 Thou/mm3 (140-440); RDW Standard Deviation 39.8 fL (36.4-46.3); Red Blood Count 3.59 Miln/mm3 (4.00-5.20); White Blood Count 11.8 Thou/mm3 (3.6-11.0)
[2025-03-17 03:21] LABS: Creatinine,Random Urine 172 mg/dL (30-125); Protein Total, Random Urine 59 mg/dL (1-14)
[2025-03-17 03:32] LABS: Bacteria,Urine Rare; Bilirubin,Urine Negative (Negative); Blood,Urine Trace (Negative); Clarity,Urine Clear (Clear/Hazy); Color,Urine Yellow (Lt Yel-Yel); Glucose, Urine Negative (Negative); Ketones,Urine Negative (Negative); Leukocyte Esterase,Urine Positive (Negative); Nitrite,Urine Negative (Negative); PH,Urine 6.5 (5.0-7.0); Protein,Urine 1+ (Neg - Trace); RBC,Urine 2 /hpf (0-3); Specific Gravity,Urine 1.017 (1.001-1.035); Squamous Epithelial Cell,Urine 7 /hpf (0-5); Urobilinogen,Urine 2.0 mg/dL (0.0-1.0); WBC,Urine 21 /hpf (0-5)
[2025-03-17 04:01] LABS: Alanine Aminotransferase < 7 U/L (10-49); Albumin, Serum 3.5 gm/dL (3.5-5.0); Albumin/Globulin Ratio 1.5 (1.2-2.2); Alkaline Phosphatase 218 U/L (46-116); Anion Gap 11 (7-16); Aspartate Amino Transferase 13 U/L (0-34); BUN/Creatinine Ratio 7 Ratio (12-20); Bilirubin,Total 0.5 mg/dL (0.3-1.2); Blood Urea Nitrogen 5 mg/dL (9-23); Calcium 9.0 mg/dL (8.3-10.6); Calcium (Corrected) 9.4 mg/dL (8.5-10.1); Carbon Dioxide 21.0 mMol/L (20.0-31.0); Chloride 107 mMol/L (98-107); Creatinine (Component) 0.7 mg/dL (0.6-1.3); Estimated Creatinine Clearance 135.4 mL/min (>60); Globulin 2.3 gm/dL (2.3-3.5); Glucose 81 mg/dL (74-106); Osmolality,Calculated 273 (275-295); Potassium 3.7 mMol/L (3.4-5.1); Sodium 139 mMol/L (136-145); Total Protein 5.8 gm/dL (5.7-8.2); Uric Acid 6.5 mg/dL (3.1-7.8); eGFR > 60 See Note
[2025-03-17 04:03] LABS: INR 0.9 (0.9-1.3); Partial Thromboplastin Time 26.5 Seconds (22.0-36.0); Prothrombin Time 10.3 Seconds (9.0-12.2)
[2025-03-17 04:08] LABS: Syphilis Nonreactive (Nonreactive)
[2025-03-17] MEDS: RINGERS LACTATED 1000 ML 1,000 ML 999 ML IV ×2 (04:13→09:02)
--- NOTE | 2025-03-17 08:06 | PD.LDHP ---
Documentation for date of: 03/17/25 OB Labor/Induct. HPI History of Present Illness Chief complaint: labor : 2 Para: 1 Term pregnancies: 1 pregnancies: 0 Living children: 1 History of Abortions: Spontaneous and Elective: 0 History of Vaginal deliveries: 1 History of sections: No History of : No Date of last menstrual period: 06/11/25 ALLEGRA: 03/26/25 Gestational Age (weeks): 38 Gestational Age (days): 5 Gestational age based on last menstrual period: -12 History of present illness: 24-year-old 2 para 1 with complaints of contractions since midnight. Denies leaking or bleeding. Reports movement. Patient is been followed at [facility] for care. She her first visit was in September. Denies social habits. Denies surgery. Denies chronic illness. Patient is O-, antibody screen negative, RPR nonreactive, rubella immune, hepatitis B negative, hep C negative, HIV negative, GC and Chlamydia were negative. Her 1 hour was high but her 3-hour normal. GBS negative. Patient got RhoGAM at 28 weeks for H&H History of Present Dating criteria: LMP confirmed by 1st trimester US Adequate Care: Yes Ultrasounds: normal 1st trimester US and normal mid trimester US Obstetrical complications: none Medical complications: none Labs Labs: Positive: Rubella Titre, Negative: RPR, Hepatitis B, HIV, Chlamydia, Gonorrhea and Group Beta Strep and Unknown: Herpes Type 1, Herpes Type 2 and Covid-19 Review of Systems Review of Systems Systems Reviewed: All systems reviewed, normal except as documented Past Medical History Surgical History SURGICAL: Negative Section Meds Home Medications and Allergies Home Medications ?Medication ?Instructions ?Recorded ?Confirmed ?Type vit no.95-ferrous 1 tab PO QDAY 02/13/23 03/17/25 History fumarate 28 mg-folic acid 800 mcg tablet () Allergies Allergy/AdvReac Type Severity Reaction Status Date / Time No Known Allergies Allergy Verified 03/16/25 09:15 OB Exam Physical Exam Vital signs: Temp Pulse Resp BP Pulse Ox 98.2 F 66 18 141/68 H 100 03/17/25 07:02 03/17/25 07:56 03/17/25 07:02 03/17/25 07:56 03/17/25 08:03 Narrative: Alert and oriented. Normal heart rate and rhythm lungs are clear. Gravid abdomen. Gynecoid pelvis. Estimated weight 7 pounds. Vaginal exam on admission was 70%, 3-4, -1. Vertex. heart rate category 1 with accelerations and moderate ability contractions were every 3. Bag water intact Detailed Labor and Delivery Exam Dilation (cm): 3-4 Effacement (%): 70 Cervix position: mid station: -1 Consistency: soft Presentation: Vertex Membranes: intact Baseline heart rate: 135 monitor accelerations: 15x15 monitor decelerations: None terminal make up operator variability: Moderate (11-25) Contraction frequency (min): 3 Contraction duration (sec): 30 Tachysystole: No Contraction intensity: Moderate OB Results Labs 03/17/25 03:04 03/17/25 03:04 Labs: Short CBC 03/17/25 Range/Units 03:04 WBC 11.8 H (3.6-11.0) Thou/mm3 Hgb 10.2 L (12.0-16.0) g/dL Hct 30.0 L (36.0-46.0) % Plt Count 277 (140-440) Thou/mm3 BMP 03/17/25 03:04 Sodium 139 Potassium 3.7 Chloride 107 Carbon Dioxide 21.0 BUN 5 L Creatinine 0.7 Glucose 81 Calcium 9.0 Liver Function 03/17/25 Range/Units 03:04 Total Bilirubin 0.5 (0.3-1.2) mg/dL AST 13 (0-34) U/L ALT < 7 L (10-49) U/L Alkaline Phosphatase 218 H (46-116) U/L Albumin 3.5 (3.5-5.0) gm/dL Urine 03/17/25 Range/Units 02:15 Urine Color Yellow (Lt Yel-Yel) Urine Clarity Clear (Clear/Hazy) Urine pH 6.5 (5.0-7.0) Ur Specific [place] 1.017 (1.001-1.035) Urine Protein 1+ A (Neg - Trace) Urine Glucose (UA) Negative (Negative) OB Assessment & Plan Additional Plan Induction method: none Plan: augmentation, anticipate NVD and consult MD jackson
[2025-03-17] MEDS: MINERAL OIL 30 ML UDC TOP (08:24)
[2025-03-17] MEDS: OXYTOCIN in NS 20 units 20 UNIT/1,000 ML BAG 125 UNIT IV ×2 (08:31→16:22)
[2025-03-17] MEDS: OXYTOCIN INJ 10 UNIT/ML VIAL IM (08:32)
--- NOTE | 2025-03-17 08:56 | OBDSUM_ITS ---
Data (Dubon) Data Hx Section: No : 2 Term: 1 : 0 Livin Abortions: Spontaneous & Theraputic: 0 Delivery Data (Dubon) Labor Data Initiation of labor: Spontaneous Induction/Augmentation Agent: None ROM date: 03/17/25 ROM time: 04:02 Amniotic membrane rupture type: Spontaneous Amniotic fluid description: Clear Delivery Data EDC: 03/26/25 EDC calculated by:: LMP/early US confirmation Date of arrival to unit: 03/17/25 Time of arrival to unit: 01:27 Onset of labor date: 03/17/25 Onset of labor time: 04:02 Complete dilation date: 03/17/25 Complete dilation time: 08:16 delivery date: 03/17/25 delivery time: 08:28 Gestational age (weeks): 38 Gestational age (days): 5 Placenta delivery date: 03/17/25 Placenta delivery time: 08:33 Stage 1 total time: Labor - Stage 1 Duration 4 hours and 14 minutes Delivered by: Tyler Delivery nurse: Shola Le nurse: Simone Lace Roller Operator at delivery: No Support person(s) at delivery: FOB Other staff at delivery: JEANNINE Bowensammonia worker Method Delivery method: Normal Vaginal Delivery Presentation: Vertex (posterior arm) position: OA Anesthesia Type Anesthesia Type: Epidural Delivery Room Medications Delivery room medications: Pitocin 10 u IM, Pitocin 20 u IV, Cytotec 800 AL and other (txa x1) Placenta Placenta delivery description: Spontaneous (inspected, intact) Cord blood sent to lab: Yes cord blood collection: Cord Blood Type Episiotomy Episiotomy description: None Lacerations #1: Vaginal: 1st degree (bilateral PU) Perineal repair Sutures used for repair: 3.0 Vicryl EBL Estimated blood loss (ml): 400 Umbilical Cord cord description: 3 Vessels and Around Extremity (posterior arm) Dudley Data (Dubon) Data order: 1 's gender: Male Identification band number: [id number] weight (gms): 3420 g Weight (pounds): 7 lbs and 8.6 ozs [place] length: 53.34 cm 1 minute: 9 5 minutes: 9
[2025-03-17] MEDS: TRANEXAMIC ACID 1,000 MG IVPB 1,000 MG/100 ML BAG 200 MG IV ×3 (09:02→21:27)
[2025-03-17] MEDS: IBUPROFEN TAB 400 MG TABLET 800 MG PO (09:18)
[2025-03-17] MEDS: BENZO/LANO/ALOE (Dermoplast) 60 GM CAN 1 SPRAY TOP (09:21)
[2025-03-17] MEDS: ceFAZolin/D5W 2 GM IV 2 GM/100 ML BAG IV ×2 (12:55→19:29)
--- NOTE | 2025-03-17 12:59 | ESPR_ITS ---
Subjective Subjective Interval history: no dizziness. No pain. Called to the unit because patient passing small clots. No active bleeding or trickling noted Exam Vital Signs Temp Pulse Resp BP Pulse Ox O2 Del Method 98.7 F 68 16 132/81 H 100 Room Air 03/17/25 12:05 03/17/25 12:05 03/17/25 12:05 03/17/25 12:05 03/17/25 12:05 03/17/25 12:05 Narrative Exam BP: 132/8.2 blood pressure,P:62.. Fundus at umbilicus. Lower segment of the uterus is open. I expressed 200 cc clots. Fundus firm below umbilicus with massage. No active bleeding at this time. Genital tract inspected for further lacerations and none were noted. Objective Labs 03/17/25 03:04 03/17/25 03:04 Labs: Laboratory Results - last 24 hr 03/17/25 03/17/25 03/17/25 02:15 02:55 03:04 WBC 11.8 H RBC 3.59 L Hgb 10.2 L Hct 30.0 L MCV 84 MCH 28.4 MCHC 34.0 RDW Std Deviation 39.8 Plt Count 277 Neut % (Auto) 79 Lymph % (Auto) 15 [place] % (Auto) 5 Eos % (Auto) 0 Baso % (Auto) 0 Neut # (Auto) 9.3 H Lymph # (Auto) 1.8 [place] # (Auto) 0.6 Eos # (Auto) 0.0 Baso # (Auto) 0.0 Immature Gran # (Auto) 0.06 H Absolute Nucleated RBC 0.00 Immature Gran % 1 H Nucleated RBC % 0 PT INR APTT Sodium 139 Potassium 3.7 Chloride 107 Carbon Dioxide 21.0 Anion Gap 11 BUN 5 L Creatinine 0.7 Estim Creat Clear Calc 135.4 eGFR > 60 BUN/Creatinine Ratio 7 L Glucose 81 Calculated Osmolality 273 L Uric Acid 6.5 Calcium 9.0 Corrected Calcium 9.4 Total Bilirubin 0.5 AST 13 ALT < 7 L Alkaline Phosphatase 218 H Total Protein 5.8 Albumin 3.5 Globulin 2.3 Albumin/Globulin Ratio 1.5 Ur Collection Type Clean Catch Urine Color Yellow Urine Clarity Clear Urine pH 6.5 Ur Specific [place] 1.017 Urine Protein 1+ A Urine Glucose (UA) Negative Urine Ketones Negative Urine Blood Trace Urine Nitrite Negative Urine Bilirubin Negative Urine Urobilinogen (Auto) 2.0 Ur Leukocyte Esterase Positive Urine RBC 2 Urine WBC 21 H Ur Squamous Epith Cells 7 H Urine Bacteria Rare Ur Random Creatinine 172 H U Random Total Protein 59 H Syphilis Serology Nonreactive Blood Type O Negative Antibody Screen POSITIVE Antibody Identification Anti-D from [facility] Blood Bank Wristband ID Yes 03/17/25 03:18 WBC RBC Hgb Hct MCV MCH MCHC RDW Std Deviation Plt Count Neut % (Auto) Lymph % (Auto) [place] % (Auto) Eos % (Auto) Baso % (Auto) Neut # (Auto) Lymph # (Auto) [place] # (Auto) Eos # (Auto) Baso # (Auto) Immature Gran # (Auto) Absolute Nucleated RBC Immature Gran % Nucleated RBC % PT 10.3 INR 0.9 APTT 26.5 Sodium Potassium Chloride Carbon Dioxide Anion Gap BUN Creatinine Estim Creat Clear Calc eGFR BUN/Creatinine Ratio Glucose Calculated Osmolality Uric Acid Calcium Corrected Calcium Total Bilirubin AST ALT Alkaline Phosphatase Total Protein Albumin Globulin Albumin/Globulin Ratio Ur Collection Type Urine Color Urine Clarity Urine pH Ur Specific [place] Urine Protein Urine Glucose (UA) Urine Ketones Urine Blood Urine Nitrite Urine Bilirubin Urine Urobilinogen (Auto) Ur Leukocyte Esterase Urine RBC Urine WBC Ur Squamous Epith Cells Urine Bacteria Ur Random Creatinine U Random Total Protein Syphilis Serology Blood Type Antibody Screen Antibody Identification Blood Bank Wristband ID Assessment & Plan Assessment Comment Assessment comment: heavy lochia Plan Comment Plan Comment: Was sized to 100 cc of clots out of the lower segment. Start Ancef 2 g every 6 hours. Cytotec 800 per rectum. TXA started. Continue IV 1000 cc NS with 20 units of Pitocin. CBC at 1400 and reevaluate. Time Spent With Patient Time: Total time spent is greater than 50% in coordination of care (as documented) at patient's floor/unit and/or counseling patient:
[2025-03-17 13:32] LABS: Basophils # (Auto) 0.0 Thou/mm3 (0.0-0.2); Basophils % (Auto) 0 % (0-2.5); Eosinophils # (Auto) 0.0 Thou/mm3 (0.0-0.5); Eosinophils % (Auto) 0 % (0-10); Hematocrit 28.4 % (36.0-46.0); Hemoglobin 9.6 g/dL (12.0-16.0); Immature Granulocytes Auto 0.05 Thou/mm3 (0.00-0.00); Lymphocytes # (Auto) 1.5 Thou/mm3 (1.0-4.8); Lymphocytes % (Auto) 10 % (10-50); Mean Corpuscular HGB Conc 33.8 g/dl (31.0-37.0); Mean Corpuscular Hemoglobin 28.7 pg (25.0-35.0); Mean Corpuscular Volume 85 fL (80-100); Monocytes # (Auto) 0.8 Thou/mm3 (0.0-0.8); Monocytes % (Auto) 6 % (0-12); Neutrophils # (Auto) 12.0 Thou/mm3 (1.8-7.7); Neutrophils % (Auto) 83 % (37-80); Nucleated Red Blood Cell # 0.00 Thou/mm3 (0.00-0.00); Nucleated Red Blood Cell % 0 /100 WBC (0); Platelet Count 239 Thou/mm3 (140-440); RDW Standard Deviation 40.4 fL (36.4-46.3); Red Blood Count 3.34 Miln/mm3 (4.00-5.20); White Blood Count 14.4 Thou/mm3 (3.6-11.0)
[2025-03-17] MEDS: DOCUSATE SOD 100 MG CAPSULE PO ×2 (13:52→21:25)
[2025-03-17] MEDS: ACETAMINOPHEN IVPB 1,000 MG/100 ML VIAL 250 MG IV ×2 (14:13→20:41)
--- NOTE | 2025-03-17 16:38 | PC.NURSE ---
03/17/2025 Jesús Astorga CNM CALLED UNIT TO GET UPDATE ON PATIENT, CNM NOTIFIED OF CURRENT LAB RESULTS, AND UPDATED WITH SBAR. RN RECEIVED ORDERS FOR CBC LAB DRAW ON 03/18/2025/ 0500.
[2025-03-17 18:07] LABS: Basophils # (Auto) 0.0 Thou/mm3 (0.0-0.2); Basophils % (Auto) 0 % (0-2.5); Eosinophils # (Auto) 0.0 Thou/mm3 (0.0-0.5); Eosinophils % (Auto) 0 % (0-10); Hematocrit 25.3 % (36.0-46.0); Immature Granulocytes Auto 0.05 Thou/mm3 (0.00-0.00); Lymphocytes # (Auto) 1.8 Thou/mm3 (1.0-4.8); Lymphocytes % (Auto) 14 % (10-50); Mean Corpuscular HGB Conc 34.0 g/dl (31.0-37.0); Mean Corpuscular Hemoglobin 28.5 pg (25.0-35.0); Mean Corpuscular Volume 84 fL (80-100); Monocytes # (Auto) 0.7 Thou/mm3 (0.0-0.8); Monocytes % (Auto) 6 % (0-12); Neutrophils # (Auto) 10.2 Thou/mm3 (1.8-7.7); Neutrophils % (Auto) 79 % (37-80); Nucleated Red Blood Cell # 0.00 Thou/mm3 (0.00-0.00); Nucleated Red Blood Cell % 0 /100 WBC (0); Platelet Count 216 Thou/mm3 (140-440); RDW Standard Deviation 39.8 fL (36.4-46.3); Red Blood Count 3.02 Miln/mm3 (4.00-5.20); White Blood Count 12.8 Thou/mm3 (3.6-11.0)
[2025-03-17 18:33] LABS: Hemoglobin 8.6 g/dL (12.0-16.0)
[2025-03-17 18:40] LABS: Fibrinogen 450 mg/dL (175-375)
[2025-03-18] MEDS: ceFAZolin/D5W 2 GM IV 2 GM/100 ML BAG IV ×3 (01:17→14:21)
[2025-03-18] MEDS: ACETAMINOPHEN IVPB 1,000 MG/100 ML VIAL 250 MG IV ×2 (02:23→08:35)
[2025-03-18] MEDS: TRANEXAMIC ACID 1,000 MG IVPB 1,000 MG/100 ML BAG 200 MG IV (03:20)
[2025-03-18 03:28] VITALS: BP 134/83; PULSE 62; RESP 16; TEMP 36.6; O2SAT 100
[2025-03-18 05:44] LABS: Basophils # (Auto) 0.0 Thou/mm3 (0.0-0.2); Basophils % (Auto) 0 % (0-2.5); Eosinophils # (Auto) 0.1 Thou/mm3 (0.0-0.5); Eosinophils % (Auto) 1 % (0-10); Hematocrit 25.7 % (36.0-46.0); Immature Granulocytes Auto 0.05 Thou/mm3 (0.00-0.00); Lymphocytes # (Auto) 2.2 Thou/mm3 (1.0-4.8); Lymphocytes % (Auto) 20 % (10-50); Mean Corpuscular HGB Conc 33.5 g/dl (31.0-37.0); Mean Corpuscular Hemoglobin 28.7 pg (25.0-35.0); Mean Corpuscular Volume 86 fL (80-100); Monocytes # (Auto) 0.6 Thou/mm3 (0.0-0.8); Monocytes % (Auto) 6 % (0-12); Neutrophils # (Auto) 7.7 Thou/mm3 (1.8-7.7); Neutrophils % (Auto) 72 % (37-80); Nucleated Red Blood Cell # 0.00 Thou/mm3 (0.00-0.00); Nucleated Red Blood Cell % 0 /100 WBC (0); Platelet Count 230 Thou/mm3 (140-440); RDW Standard Deviation 40.2 fL (36.4-46.3); Red Blood Count 3.00 Miln/mm3 (4.00-5.20); White Blood Count 10.6 Thou/mm3 (3.6-11.0)
[2025-03-18 05:47] LABS: Hemoglobin 8.6 g/dL (12.0-16.0)
--- NOTE | 2025-03-18 07:47 | ESPR_ITS ---
Subjective Subjective Interval history: Doing well. No complaints of dizziness. No pain. Bonding and breast-feeding Exam Vital Signs Temp Pulse Resp BP Pulse Ox O2 Del Method 97.8 F 62 16 134/83 H 100 Room Air 03/18/25 03:28 03/18/25 03:28 03/18/25 03:28 03/18/25 03:28 03/18/25 03:28 03/18/25 03:28 Narrative Exam Hemoglobin globin dropped from 10-8.6 and stable. Vital signs are stable afebrile for over 12 hours. Breasts are soft no mastitis. Fundus firm below the umbilicus small lochia. No clots expressed. Negative Homans' sign. 2+ DTRs. Perineum is intact no swelling. Objective Labs 03/18/25 05:15 03/17/25 03:04 Labs: Laboratory Results - last 24 hr 03/17/25 03/17/25 03/17/25 03:04 03:18 13:21 WBC 14.4 H RBC 3.34 L Hgb 9.6 L Hct 28.4 L MCV 85 MCH 28.7 MCHC 33.8 RDW Std Deviation 40.4 Plt Count 239 D Neut % (Auto) 83 H Lymph % (Auto) 10 [place] % (Auto) 6 Eos % (Auto) 0 Baso % (Auto) 0 Neut # (Auto) 12.0 H Lymph # (Auto) 1.5 [place] # (Auto) 0.8 Eos # (Auto) 0.0 Baso # (Auto) 0.0 Immature Gran # (Auto) 0.05 H Absolute Nucleated RBC 0.00 Immature Gran % 0 Nucleated RBC % 0 Fibrinogen 450 H Rho(D) IG Studies Ready Antibody Identification Anti-D from RhoGam Maternal Bleed Negative 03/17/25 03/18/25 17:46 05:15 WBC 12.8 H 10.6 RBC 3.02 L 3.00 L Hgb 8.6 L 8.6 L Hct 25.3 L 25.7 L MCV 84 86 MCH 28.5 28.7 MCHC 34.0 33.5 RDW Std Deviation 39.8 40.2 Plt Count 216 230 Neut % (Auto) 79 72 Lymph % (Auto) 14 20 [place] % (Auto) 6 6 Eos % (Auto) 0 1 Baso % (Auto) 0 0 Neut # (Auto) 10.2 H 7.7 Lymph # (Auto) 1.8 2.2 [place] # (Auto) 0.7 0.6 Eos # (Auto) 0.0 0.1 Baso # (Auto) 0.0 0.0 Immature Gran # (Auto) 0.05 H 0.05 H Absolute Nucleated RBC 0.00 0.00 Immature Gran % 0 1 H Nucleated RBC % 0 0 Fibrinogen Rho(D) IG Studies Antibody Identification Maternal Bleed Assessment & Plan Assessment Comment Assessment comment: 24 hr pp Plan Comment Plan Comment: IV iron Ferrlecit 25 x 2 units. Discharge home at 4 PM. With baby. Continue vitamins and iron at home. Tylenol ibuprofen for pain. Discussed danger signs symptoms and ER precautions. And I discussed signs symptoms of infection. Patient will monitor her bleeding and notify me if it is abnormal. Rest increase fluids. Return in 3 weeks for check Time Spent With Patient Time: Total time spent is greater than 50% in coordination of care (as documented) at patient's floor/unit and/or counseling patient:
--- NOTE | 2025-03-18 07:51 | PD.LDDS ---
DS: Providers Provider Date of admission: 03/17/25 02:22 Primary care physician: Physician No Primary/Family Admitting Provider: Uriel Retana MD Attending Provider on Admission: Rosa Elena Camilo CNM Consults: 03/17/25 10:03 Referral Routine Comment: Attending Provider on DC: Rosa Elena Camilo CNM Discharging Provider: Rosa Elena Camilo CNM DS: Diagnosis Problem List Completed Was Problem List Reviewed/Reconciled?: Yes Summary/Hosp Course Brief History: 24-year-old 2 para 1 with complaints of contractions since midnight. Denies leaking or bleeding. Reports movement. Patient is been followed at [facility] clinic for care. She her first visit was in September. Denies social habits. Denies surgery. Denies chronic illness. Patient is O-, antibody screen negative, RPR nonreactive, rubella immune, hepatitis B negative, hep C negative, HIV negative, GC and Chlamydia were negative. Her 1 hour was high but her 3-hour normal. GBS negative. Patient got RhoGAM at 28 weeks for H&H Peripartum Data Delivery Method: Normal Vaginal Delivery Episiotomy Description: None Laceration Description: yes (vaginal and PU) complications: none Time Spent with Patient Time attestation: Total time spent providing and/or coordinating discharge services: Exam Vital Signs Temp Pulse Resp BP Pulse Ox O2 Del Method 97.8 F 62 16 134/83 H 100 Room Air 03/18/25 03:28 03/18/25 03:28 03/18/25 03:28 03/18/25 03:28 03/18/25 03:28 03/18/25 03:28 Discharge Plan Plan Patient Disposition: HOME (Self Care) Patient condition on transfer: Stable Prescriptions/Referrals Prescriptions/Med Rec: No Action PNV no.95-ferrous fumarate-FA [] 28 mg iron- 800 mcg tablet 1 tab PO QDAY Referrals: No Primary/Family,Physician [Primary Care Provider] Patient/Caregiver Discharge Instructions Discharge Activity: resume usual activities Print Language: Andorran Activity Restrictions/Additional Instructions: Continue vitamins and iron at home. Tylenol ibuprofen for pain. Discharge at 4 PM. Discussed danger signs and symptoms and ER precautions with parameters. Discussed signs symptoms of infection. I reviewed PIH precautions with patient as well. Increase fluids. Return in 3 weeks check Stand Alone Forms: Dee Award Info., Patient Portal Info Letter Discharge Order Discharge Orders: Discharge (Routine); Ordered 03/18/25 Ordered By: Rosa Elena Camilo Planned Discharge Date 03/18/25
[2025-03-18 08:00] VITALS: BP 133/84; PULSE 63; RESP 14; TEMP 36.6; O2SAT 98
[2025-03-18] MEDS: DOCUSATE SOD 100 MG CAPSULE PO (08:35)
[2025-03-18] MEDS: FERRIC SOD GLUC INJ 125 MG in SODIUM CHLORIDE 0.9% 100 ML 110 MG IV ×2 (10:52→12:59)
[2025-03-18 12:00] VITALS: BP 128/84; PULSE 65; RESP 16; TEMP 36.6; O2SAT 99
[2025-03-18 15:50] VITALS: BP 134/80; PULSE 60; RESP 16; TEMP 36.8; O2SAT 100
== END 2025-03-18 16:45 | disposition home or self-care (01) | DRG 560 ==
LOC: S4SX 08:55 → S4NX 10:28
PROVIDERS: Admitting Provider Obstetrics & Gynecology; Visit Provider Advanced Practice Midwife
DX: O70.0 First degree perineal laceration during delivery (principal); Z37.0 Single live birth; Z3A.38 38 weeks gestation of pregnancy
CPT/HCPCS: 36415; 59409; 80053; 81001; 82570; 84156; 84550; 85025; 85384; 85461; 85610; 85730; 86780; 86850; 86870; 86900; 86901; 94762; J0131; J0689; J2590; J2790; J2795; J2916; J3490; J7050; J7120; S0191; A9270

== ENCOUNTER 2025-03-21 21:19 | Emergency (ER) | payer MEDICAID, SELFPAY ==
[2025-03-21 21:22] VITALS: BMI 27.7
[2025-03-21 22:41] VITALS: BP 169/108; BP 181/114; PULSE 70; RESP 20; TEMP 37.1; O2SAT 100
[2025-03-21 23:01] VITALS: BP 158/102; PULSE 75; RESP 20
--- NOTE | 2025-03-21 23:04 | EKG_ITS ---
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
--- NOTE | 2025-03-21 23:13 | PD.EDSOB ---
ED SOB =RME/HPI General Chief Complaint: Shortness of Breath/Dyspnea Stated Complaint: BILATERAL FEET SWELLING HTN SP VAGINAL 4 DAY Arrival date/time: 03/21/25 21:19 RME / HPI RME / HPI Narrative: Dr. Altamirano?s Main ED Evaluation: 24yo female who is day 4 reportedly had elevated blood pressure following . Patient reportedly had been treated with antihypertensives and released on her own accord without specific therapy. Notes development of frontal headache and BLE edema over the last 2 days. No photosensitivity, nausea, vomiting, or diarrhea. PMH unremarkable. No history of HTN. PSH unremarkable. No tobacco, alcohol, or illicit drug use. NKA. Related Data Home Medications ?Medication ?Instructions ?Recorded ?Confirmed vit no.95-ferrous 1 tab PO QDAY 02/13/23 03/17/25 fumarate 28 mg-folic acid 800 mcg tablet () Previous Rx's ?Medication ?Instructions ?Recorded enalapril maleate 5 mg tablet 5 mg PO QDAY #14 tabs 03/22/25 (Vasotec) furosemide 20 mg tablet 20 mg PO Q OTHER DAY 6 days #3 tabs 03/22/25 potassium chloride 10 mEq 10 meq PO EVERYOTHERDAY 6 days #3 03/22/25 capsule,extended release caps Allergies Allergy/AdvReac Type Severity Reaction Status Date / Time No Known Allergies Allergy Verified 03/21/25 21:26 Review of Systems Review of Systems Systems Reviewed: All systems reviewed, normal except as documented Past Medical History Past Medical History NEUROLOGIC: Negative Neurological Disorders, Cerebrovascular Accident, Transient Ischemic Attacks (TIA), Dementia, Alzheimer's Disease, Parkinson's Disease, Brain Tumor, Meningitis, Seizures, Epilepsy, Multiple Sclerosis, Cerebral Palsy, Amyotrophic Lateral Sclerosis (ALS/Addie Gehrig's), Guillain-[place] Syndrome, Spina Bifida, Paralysis, Peripheral Neuropathy, Thorne's Palsy, Subdural Hematoma, Migraine, Head Trauma, Spinal Cord Injury or Traumatic Brain Injury CARDIAC: Negative Cardiac Disorders, Myocardial Infarction, Cardiac Arrhythmia, Atrial Fibrillation, Angina, Heart Murmur, Coronary Artery Disease, Atherosclerotic Heart Disease, Peripheral Vascular Disease, Hypercholesterolemia, Aneurysm, Congestive Heart Failure, Congenital Heart Disease, Valvular Heart Disease, Rheumatic Fever, Cardiomyopathy, Edema, Pericarditis, Cellulitis, Deep Vein Thrombosis, Hypertension, Hypotension or Varicose Veins RESPIRATORY: Negative Chronic Obstructive Pulmonary Disease (COPD), Asthma, Bronchitis, Emphysema, Pneumonia, Pulmonary Fibrosis, Tuberculosis, Pulmonary Embolism, Pulmonary Edema, Sleep Apnea, CPAP Dependent, Respiratory Aspiration, Dyspnea, Orthopnea, Cough, Sputum Production, Wheezing, Chest Deformities, Smoking, Smoking Cessation Counseling, Smoking Exposure, Tobacco Use, Clubbing, Exposure to Respiratory Irritants or Intubation GASTROINTESTINAL: Negative Gastrointestinal Disorders, Liver Cancer, Hepatitis, Cirrhosis, Pancreatic Cancer, Pancreatitis, Celiac Disease, Gall Bladder Disease, Gastrointestinal Bleed, Esophageal Varices, Waggoner's Esophagus, Colitis, Ulcerative Colitis, Diverticulitis, Diverticulosis, Ulcer, Colorectal Cancer, Irritable Bowel, Crohn's Disease, Obstructive Bowel, Hiatal Hernia, Hemorrhoids, Gastroesophageal Reflux Disease or Obesity GENITOURINARY: Negative Genitourinary Disorders, Renal Disease, Kidney Stones, Polycystic Kidney Disease, Neurogenic Bladder, Inguinal Hernia, Dialysis, Prostate Cancer or Benign Prostatic Hyperplasia REPRODUCTIVE: Negative Breast Cancer, Endometriosis, Fibroids, Genital Herpes, Gonorrhea, Pelvic Inflammatory Disease, Hx Polycystic Ovarian Syndrome, Previous Pregnancies or Syphilis MUSCULOSKELETAL: Negative Musculoskeletal Disorders, Muscular Dystrophy, Myasthenia Gravis, Marfan's Syndrome or Bone Cancer ENT: Negative Cataracts, Glaucoma, Blind, Retinal Detachment, Macular Degeneration, Ear Infection, Deafness, Head Trauma or Eye Prosthesis ENDOCRINE: Negative Endocrine Disorders, Diabetes Mellitus Type 1, Diabetes Mellitus Type 2, Hypoglycemia, Jeferson's Syndrome, Parag's Disease, Hyperthyroidism, Hypothyroidism, Thyroid Cancer, Parathyroid Disease, Pituitary Disease, Systemic Lupus Erythematosus, Syndrome of Inappropriate Antidiuretic Hormone (SIADH), Adrenal Disease or Graves' Disease HEMATOLOGIC: Negative Blood Disorders, Anemia, Leukemia, Hemophilia, Thalassemia, Sickle Cell Disease or Clotting Problems PSYCHO/SOCIAL: Negative Depression, Anxiety or Behavior Problems OTHER HISTORY: Negative Hospitalization, Autoimmune Disease, Down Syndrome, Developmental Delay, Shingles, Falls, Blood Transfusions, Blood Transfusion Reaction, Anesthesia Reactions, Organ Transplant, Chemotherapy, Radiation Therapy, Hyperbaric Therapy, MRSA, Clostridium Difficile, Cancer, Breast Cancer, Colorectal Cancer or Prostate Cancer Family History FAMILY HISTORY: Positive Family Respiratory Disorders (asthma), Family Cardiac Disorders (chf) and Family Cancer (grandmother liver); Negative Family Psychiatric Problems, Family Gastrointestinal Problems, Family Surgery or Family Anesthesia Reaction Surgical History SURGICAL: Negative Endocrine Surgery, Thyroidectomy, Ear Surgery, Abdominal Surgery, Nephrectomy, Joint Replacement, Neurologic Surgery, Lumpectomy, Hysterectomy, Tubal Ligation, Section or Organ Transplant Social History SMOKING STATUS: Never smoker SECOND HAND EXPOSURE: No ED Exam Narrative Physical exam: GENERAL APPEARANCE: alert and oriented x 4, well-developed, well-nourished, notably hypertensive at 158/102, afebrile, nontoxic, no acute distress HEENT: Normocephalic, atraumatic; pupils equal, round, reactive to light; EOMI; mucous membranes pink, moist; oropharynx clear NECK: Supple LUNGS: CTABL; no wheezes, no rales, no rhonchi HEART: Regular rate, regular rhythm; normal S1, S2; no murmurs ABDOMEN: non distended; normal BS; soft, no tenderness, no guarding, no rebound; no masses, no organomegaly, no hernia BACK: no CVA tenderness EXTREMITIES: atraumatic; 2+ circumferential edema from the dorsum of the foot up to the level of the ankle bilaterally NEUROLOGIC: awake; alert and oriented x4; cranial nerves II-XII grossly intact; no focal sensory or motor deficits PSYCHIATRIC: appropriate mood and affect SKIN: warm, dry, normal color; no rashes Course Quality Measures none Orders Category Date Time Status EKG (ED ONLY) *Do not use* NOW Care 03/21/25 23:04 Active EKG (ED Only) Stat Exams 03/21/25 23:04 Draft CBC [CBC] Stat Lab 03/21/25 23:20 Completed CMP [Comprehensive Metabolic Panel] Stat Lab 03/21/25 23:20 Completed Urinalysis, C/S if Indicated Stat Lab 03/21/25 23:33 Completed Urine Culture Stat Lab 03/21/25 23:33 Received Magnesium Sulfate 4 GM Ivpb [Magnesium Sulfate Ivpb] Med 03/21/25 23:21 Active 4 gm in 50 ml IV X1 Morphine* Inj Med 03/21/25 23:21 Discontinued 4 mg IVP X1 ONE Ondansetron Inj [Zofran Inj] Med 03/21/25 23:21 Discontinued 4 mg IVP X1 ONE Sodium Chloride 0.9% 500 ml [Ns] 500 ml Med 03/21/25 23:25 Discontinued IV 250 mls/hr Vital Signs Vital signs: Vital Signs Temperature 98.7 F 03/21/25 22:41 Pulse Rate 70 03/21/25 22:41 Respiratory Rate 20 03/21/25 22:41 Blood Pressure 181/114 H 03/21/25 22:41 Pulse Oximetry (%) 100 03/21/25 22:41 Oxygen Delivery Method Room Air 03/21/25 22:41 Shortness of Breath / Dyspnea MDM Narrative MDM Narrative:: Scribe Attestation: 03/21/25 Kathrine Vega am scribing for and in the presence of Dr. Altamirano. 24yo female who is day 4 reportedly had elevated blood pressure following . Patient reportedly had been treated with antihypertensives and released on her own accord without specific therapy. Please see PE findings. Lab markers demonstrate mildly elevated WBC count 11.5, mild anemia with Hgb 9.7, no left shift or bandemia. Chemistries unremarkable. UA demonstrated 1+ proteinuria, positive leukocyte esterase with RBCs and WBCs present, rare bacteria noted. Patient placed on photocomposition keyboard operator, IV established, and received IV Magnesium Sulfate with gradual reduction to acceptable limits although pressure is currently trending upward. Will initiate Enalapril therapy to begin in the AM. Patient instructed to monitor her blood pressure at home and return if she begins experiencing a headache, persistent vomiting, chest pain, or any worsening symptoms. Close follow-up with SUPPLY TECH follow-up in the next 3-5 days. Dx: preeclampsia Patient data External records reviewed:: [facility] previous records (Per chart review, patient has no relevant previous ED visits.) Clinical information provided by:: patient Social determinants that could affect healthcare access:: none Patient has the following chronic illnesses:: none How is presenting disease/condition affected by chronic disease/condition?: no chronic disease Evaluation data The following diagnostics were reviewed and interpreted by me:: lab results and EKG tracing(s) Lab and/or radiology exams considered but not ordered:: none Interpretation Summary: EKG done at 2312, sinus rhythm, rate of 78, no acute pathological ST segment changes, no ectopy, normal intervals, normal axis, according to my interpretation. Medications / Prescriptions Medications or Prescriptions considered but not ordered:: none Medication administrations:: Medication Administration History Magnesium Sulfate (Magnesium Sulfate Ivpb) 4 gm in 50 mls @ 12.5 mls/hr IV X1 ONE Stop: 03/22/25 03:20 Last Admin: 03/21/25 23:43 Dose: 12.5 mls/hr Documented By: LINH Discontinued Medications Sodium Chloride (Ns) 500 mls @ 250 mls/hr IV .Q2H ONE Stop: 03/22/25 01:24 Last Infusion: 03/22/25 01:52 Dose: Infused Documented By: Admin: 03/21/25 23:52 Dose: 250 mls/hr Documented By: LINH Morphine Sulfate (Morphine Sulf Inj 4 Mg/Ml Vial) 4 mg IVP X1 ONE Stop: 03/21/25 23:22 Last Admin: 03/21/25 23:44 Dose: 4 mg Documented By: LINH Ondansetron HCl (Ondansetron Inj 2 Mg/Ml Inj 2 Ml) 4 mg IVP X1 ONE; Protocol Stop: 03/21/25 23:22 Last Admin: 03/21/25 23:43 Dose: 4 mg Documented By: LINH see above Consultations Consultation(s) initiated? (list below): No Diagnosis Shortness of Breath Differential Diagnosis: other (hypertension, preeclampsia, eclampsia) Most likely diagnosis given after review of the tests above:: preeclampsia Admission Indicated Admission indicated?: not indicated Admission Request Was there a request for admission?: No Disposition Plan Disposition Plan: Discharge Discharge Attestation Discharge Attestation: The patient and all family members were given an opportunity to ask questions and understood the discharge instructions. Discharge instructions specifically effects, indications for sooner follow up or return to the emergency department, and the expected course of current diagnosis. Patient condition: Stable Discharge Plan Plan Patient Disposition: HOME (Self Care) Discharge Disposition comment: Stable Prescriptions/Referrals Prescriptions/Med Rec: New enalapril maleate [Vasotec] 5 mg tablet 5 mg PO QDAY Qty: 14 0RF furosemide 20 mg tablet 20 mg PO Q OTHER DAY 6 Days Qty: 3 0RF potassium chloride 10 mEq capsule, extended release 10 meq PO EVERYOTHERDAY 6 Days Qty: 3 0RF No Action PNV no.95-ferrous fumarate-FA [] 28 mg iron- 800 mcg tablet 1 tab PO QDAY Referrals: Rj Stover MD [Primary Care Provider, Family Practice] - In 1 week Problem List Clinical Impression: Pre-eclampsia in period Patient/Caregiver Discharge Instructions Discharge Activity: activity as tolerated Other Activity Instructions:: Elevate lower extremities at night. Education Materials: Understanding Preeclampsia Additional Instructions: Medication as directed. Follow-up with DATABASE TECHNICIAN physician within 1 to 2 weeks. Return if worsening Print Language: Czech Stand Alone Forms: Dee Award Info., Patient Portal Info Letter
[2025-03-21 23:37] LABS: Basophils # (Auto) 0.1 Thou/mm3 (0.0-0.2); Basophils % (Auto) 0 % (0-2.5); Eosinophils # (Auto) 0.1 Thou/mm3 (0.0-0.5); Eosinophils % (Auto) 1 % (0-10); Hematocrit 29.4 % (36.0-46.0); Hemoglobin 9.7 g/dL (12.0-16.0); Immature Granulocytes Auto 0.07 Thou/mm3 (0.00-0.00); Lymphocytes # (Auto) 1.7 Thou/mm3 (1.0-4.8); Lymphocytes % (Auto) 15 % (10-50); Mean Corpuscular HGB Conc 33.0 g/dl (31.0-37.0); Mean Corpuscular Hemoglobin 29.0 pg (25.0-35.0); Mean Corpuscular Volume 88 fL (80-100); Monocytes # (Auto) 0.5 Thou/mm3 (0.0-0.8); Monocytes % (Auto) 5 % (0-12); Neutrophils # (Auto) 9.0 Thou/mm3 (1.8-7.7); Neutrophils % (Auto) 79 % (37-80); Nucleated Red Blood Cell # 0.00 Thou/mm3 (0.00-0.00); Nucleated Red Blood Cell % 0 /100 WBC (0); Platelet Count 327 Thou/mm3 (140-440); RDW Standard Deviation 42.6 fL (36.4-46.3); Red Blood Count 3.35 Miln/mm3 (4.00-5.20); White Blood Count 11.5 Thou/mm3 (3.6-11.0)
[2025-03-21] MEDS: ONDANSETRON INJ 2 MG/ML INJ 2 ML 4 MG IVP (23:43)
[2025-03-21] MEDS: Magnesium Sulfate 4 GM Ivpb 4 GM/50 ML BAG IV (23:43)
[2025-03-21] MEDS: MORPHINE SULF INJ 4 MG/ML VIAL IVP (23:44)
[2025-03-21 23:46] VITALS: BP 143/88; PULSE 69; RESP 18; O2SAT 97
[2025-03-21 23:50] LABS: Collection Type, Urine Clean Catch
[2025-03-21] MEDS: SODIUM CHLORIDE 0.9% 500 ML 500 ML 250 ML IV (23:52)
[2025-03-21 23:58] LABS: Alanine Aminotransferase 19 U/L (10-49); Albumin, Serum 3.7 gm/dL (3.5-5.0); Albumin/Globulin Ratio 1.7 (1.2-2.2); Alkaline Phosphatase 181 U/L (46-116); Anion Gap 11 (7-16); Aspartate Amino Transferase 29 U/L (0-34); BUN/Creatinine Ratio 10 Ratio (12-20); Bilirubin,Total 0.3 mg/dL (0.3-1.2); Blood Urea Nitrogen 7 mg/dL (9-23); Calcium 9.1 mg/dL (8.3-10.6); Calcium (Corrected) 9.3 mg/dL (8.5-10.1); Carbon Dioxide 24.1 mMol/L (20.0-31.0); Chloride 108 mMol/L (98-107); Creatinine (Component) 0.7 mg/dL (0.6-1.3); Estimated Creatinine Clearance 130.7 mL/min (>60); Globulin 2.2 gm/dL (2.3-3.5); Glucose 99 mg/dL (74-106); Osmolality,Calculated 282 (275-295); Potassium 3.5 mMol/L (3.4-5.1); Sodium 143 mMol/L (136-145); Total Protein 5.9 gm/dL (5.7-8.2); eGFR > 60 See Note
[2025-03-22 00:11] LABS: Bacteria,Urine Rare; Bilirubin,Urine Negative (Negative); Blood,Urine 3+ (Negative); Clarity,Urine Clear (Clear/Hazy); Color,Urine Lt-Yellow (Lt Yel-Yel); Glucose, Urine Negative (Negative); Ketones,Urine Negative (Negative); Leukocyte Esterase,Urine Positive (Negative); Nitrite,Urine Negative (Negative); PH,Urine 6.5 (5.0-7.0); Protein,Urine 1+ (Neg - Trace); RBC,Urine 42 /hpf (0-3); Specific Gravity,Urine 1.024 (1.001-1.035); Squamous Epithelial Cell,Urine 2 /hpf (0-5); Urobilinogen,Urine 2.0 mg/dL (0.0-1.0); WBC,Urine 20 /hpf (0-5)
[2025-03-22 00:15] LABS: Culture Indicated,Urine Yes
[2025-03-22 01:00] VITALS: BP 123/74; PULSE 71; RESP 11; O2SAT 98
[2025-03-22 01:04] VITALS: BP 123/74; PULSE 78; RESP 18; TEMP 37.1; O2SAT 97
[2025-03-22 01:46] VITALS: BP 132/82
[2025-03-22 01:55] VITALS: BP 132/82; PULSE 63; RESP 16; O2SAT 95
[2025-03-22 02:18] VITALS: BP 166/82; PULSE 63; RESP 19; TEMP 36.6; O2SAT 98
[2025-03-22 03:06] VITALS: BP 124/74; PULSE 87; RESP 19; TEMP 37; O2SAT 100
== END 2025-03-22 03:18 | disposition home or self-care (01) ==
PROVIDERS: Emergency Provider Emergency Medicine; PCP Family Medicine
DX: O14.95 Unspecified pre-eclampsia, complicating the puerperium (principal)
CPT/HCPCS: 36415; 80053; 81001; 85025; 87077; 87086; 87186; 96365; 96366; 96375; 99283; J2270; J2405; J3475; J7999

== ENCOUNTER 2025-03-30 08:18 | Outpatient (AMB) | payer MEDICAID, SELFPAY ==
[2025-03-30 08:30] VITALS: BP 158/110; PULSE 94; RESP 16; TEMP 36.2; O2SAT 98; BMI 25.6
--- NOTE | 2025-03-30 08:30 | AMB.OBPP ---
Vital Signs 03/30/25 08:30 Height 1.68 m Height Method Stated Weight 72.348 kg Weight Measurement Method Standing Scale BMI 25.6 BP 158/110 H Blood Pressure Source Automatic Cuff Blood Pressure Location Left Upper Arm Position Sitting Respiration 16 Pulse 94 Pulse Source Monitor Temp 97.2 F Temp Source Oral Pulse Oximetry (%) 98 Oxygen Delivery Method Room Air Allergies/Home Meds Allergies & Medications Allergies No Known Allergies Allergy (Verified 03/30/25 08:33) Medication Reconciliation vit no.95-ferrous fumarate 28 mg-folic acid 800 mcg tablet () 1 tab PO QDAY 02/13/23 [History Confirmed 03/30/25] enalapril maleate 5 mg tablet (Vasotec) 5 mg PO QDAY #14 tabs 03/22/25 [Rx Confirmed 03/30/25] nifedipine 30 mg tablet,extended release 24 hr (Procardia XL) 30 mg PO QDAY #30 tabs 03/30/25 [Rx] Intake Visit Data Collection New Patient or Established: Established Patient (seen at 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 Medical History Past Medical History: No Hx Neurological Disorders, No Hx Hypothyroidism, No Hx Hyperthyroidism, No Hx Breast Cancer, No Hx Cardiac Disorders, No Hx Hypertension, No Hx Cancer, No Hx Blood Disorders, No Hx Anemia, No Hx Gastrointestinal Disorders, No Hx Renal Disease, No Hx Deep Vein Thrombosis, No Hx Diabetes Mellitus Type 1, No Hx Diabetes Mellitus Type 2, No Hx Tubal Ligation, No Hx Hysterectomy and No Hx Polycystic Ovarian Syndrome Questionnaires Covid-19 Vaccine Questionnaire Has patient been vacinated for Covid-19 Have you been vacinated for Covid-19: No Social History Living Situation History Marital Status: Single Lives With: Family Housing: House Housing Other:: Has a 1-1/2-year-old child at home. a girl. Stays at home Tobacco History Smoking Status: Never smoker Second Hand Smoke Exposure: No Alcohol History Alcohol Intake: Never Substance Use History Substance Use: no Domestic Abuse History Do You Feel Safe at Home: Yes EPDS - PP Depression Screening [place] Pospartum Depression Screen I have been able to laugh and see the funny side of things: (0) As much as I always could I have looked forward with enjoyment to things: (0) As much as I ever did I have blamed myself unnecessarily when things went wrong: (0) No, never I have been anxious or worried for no good reason: (0) No, not at all I have felt scared or panicky for no very good reason: (0) No, not at all Things have been getting on top of me: (0) No, I have been coping as well as ever I have been so unhappy that I have had difficulty sleeping: (0) No, not at all I have felt sad or miserable: (0) No, not at all I have been so unhappy that I have been crying: (0) No, never The thought of harming myself has occurred to me: (0) Never Total Score: EPDS Score: Referral is indicated for score of 9 or more, suicidal, or if provider believes patient is depressed regardless of score.: 0 EPDS completed yes Care OB Visit Log OB Flowsheet Initial Weight: 78 kg Date <del>?</del> EGA Weight BP Alb Glu CTX Pres Fundal ht FHR Mov Dilation Station Effacement Hx Notes Visit Note 08/19/24 <del>?</del> 8w 5d 80.002 kg (+2002.354 g) 112/78 140 09/11/24 <del>?</del> 12w 0d 78.528 kg (+528.179 g) 102/69 12 160 10/14/24 <del>?</del> 16w 5d 78.642 kg (+641.577 g) 120/76 16 150 active 11/13/24 <del>?</del> 21w 0d 79.095 kg (+1095.169 g) 135/81 22 140 active Patient is doing well she is almost back up to her first weight. She has an ultrasound scheduled this week at [facility] for structural survey. Patient knows it is a boy. She will name Ricky. No bleeding or contractions. Good movement. 12/16/24 <del>?</del> 25w 5d 80.343 kg (+2342.548 g) 110/71 25 active No contractions no loss of fluids doing well. Glucose challenge test ordered. 01/22/25 <del>?</del> 31w 0d 80.966 kg (+2966.238 g) 111/77 30 137 active +FM, No UCS No VB Elevated GCT, for GTT RhoGAM today 02/12/25 <del>?</del> 34w 0d 82.214 kg (+4213.617 g) 130/70 absent 34 145 active Good movement no contractions no vaginal bleeding GTT normal. Had RhoGAM. Need ultrasound for size and dates. This was authorized. 02/16/25 <del>?</del> 34w 4d 82.1 kg (+4100.219 g) 114/74 absent cephalic 34 active 02/26/25 <del>?</del> 36w 0d 82.724 kg (+4723.908 g) 126/5 absent cephalic 34 145 active Good movement. Denies leaking, denies bleeding, denies contractions. Increased Remberto Pina pressure. Slight backache. Patient is doing well GBS today. Discussed labor precautions kick count twice a day. Increase fluids. Return a week OB check 03/04/25 <del>?</del> 36w 6d 82.611 kg (+4610.51 g) 137/81 occasional cephalic 36 146 absent Good movement. Denies leaking. Denies contractions. No bleeding. Increased pressure.. Discussed GBS. Labor precautions. Discussed danger signs symptoms and ER precautions with parameters. Kick count twice a day. Increase fluids. Continue prenatals. Return a week OB check 03/15/25 <del>?</del> 38w 3d 83.064 kg (+5064.102 g) 137/88 occasional cephalic 38 145 active 1 -3 50 svE: L/Thick/high/post/soft. Reports good movement. Denies leaking or bleeding. Complains of vaginal discharge and itch. Per exam today patient's vagina red with white curdy discharge. NuSwab plus today. Diflucan 150 p.o. daily x 3. Discussed labor precautions and kick count. Increase fluids. Continue prenatals. Return in a week OB check ALLEGRA Calculator Estimated Delivery Date Method Current WG Current Estimate 03/26/25 Ultrasound #1 40w 4d Other Estimates 03/20/25 Ultrasound #2 41w 3d 03/19/25 Manual 41w 4d sono done 11/11/24, IUP was 21w5 Expected Delivery Route/Plan x 1 anticipate will want epidural Specific Issue/Plans Rh-. Will need RhoGAM. Notes Visit Date: 02/12/25 Last Updated by: Ellen Aviles ([facility])MD Failed 1 hour glucose, passed 3-hour glucose. Need ultrasound for size and dates. Visit Date: 01/22/25 Last Updated by: Ellen Aviles ([facility])MD labs O- /rubella immune/ RPR nonreactive/ hepatitis B surface antigen negative/hep B negative/ hep C negative/ GC negative /Chlamydia negative Visit Date: 10/14/24 Last Updated by: Ellen Aviles ([facility])MD Patient reports some flutters. No vaginal bleeding no cramping. She states she has lost about 10 pounds this but now her appetite is much better. She is set for structural survey in 4 weeks. HPI Interval History: 24-year-old 2 para 2 for 5-day and ER follow-up. Patient had a vaginal delivery March 17, 2025. A baby boy. Weighed 7 pounds 9. Patient had excessive bleeding . The EBL was 500. 4 hours post patient passed blood clots. I expressed clots from the lower segment. Patient was treated with TXA and Cytotec. Patient discharged home on day 2 . She had received IV iron x 2. Blood pressures on discharge 131/84. Patient is bottlefeeding. Good support from family and friends. She is happy, no depression. Father of the baby is involved. At this time patient denies headache, denies blurred vision, denies epigastric pain. Patient was seen March 22 at [facility] ER. She went to the hospital for complaints of a headache and difficulty catching her breath. Patient was diagnosed with preeclampsia. She was treated with 4 g mag sulfate x 1 and discharged home on Vasotec 5 mg daily. 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 Denies blurred vision. Denies epigastric pain. Exam Narrative Physical exam: Normal heart rate and rhythm. Lungs clear no wheezes. Abdomen is soft nontender. Uterus well involuted. Perineum is intact no lacerations. No swelling. Small lochia. Negative Homans' sign. 2+ DTRs. No edema no swelling. Breasts are soft General Limitations: no limitations General Appearance: alert, in no apparent distress, comfortable, cooperative, healthy appearing, well developed and well groomed Head Head exam: atraumatic, normocephalic and normal inspection Eye Eye exam: Present normal appearance, PERRL and EOMI Chest Chest inspection: Present normal inspection and symmetric chest wall rise Resp Respiratory exam: Present normal lung sounds bilaterally Card Cardiovascular exam: Present regular rate, normal rhythm and normal heart sounds Abdominal Abdominal exam: Present soft and normal bowel sounds Extremities Extremities exam: Present normal inspection and full ROM Neuro Neurological exam: Present alert, oriented X3 and CN II-XII intact Psych Psychiatric exam: Present normal affect and normal mood Office Procedures OB Clinic LOC & Office Proc's Nursing/Assessment Patient Status: Established Patient OB Clinic Nursing Assessment: Medication Reconciliation, Update PMH in EMR and Vital Signs OB Clinic Coordination of Care: Education Complex Pt/Fam, Consent,records obtained, informed consent, Lab and Imaging orders and Staff clarify orders Established Patient Charge Established Patient Point Assignment: 80 Post Follow-up Visit Post Follow up Visit: Yes Assessment & Plan Diagnosis / Problem List (1) Pre-eclampsia in period: Status: Inactive Plan: Consult with OB for elevated blood pressures. Start patient on nifedipine 30 XL daily. Have patient return in 3 days for blood pressure check. Discussed further danger signs symptoms and ER precautions. Okay to take Tylenol for headache. Increase fluids and rest. Plan rtc 3 days BP check, start Nifedipine 30 xl daily Care Reviewed delivery summary and any complications: Yes Uterus involuted to: 3 below Perineal / incision healing noted: Yes Screened for depression: Yes Depression counseling provided: No Discussed family planning & contraception: Yes Contraception planned: condom Counseling on safe resumption of sexual activity: Yes Counseling on gradual excercise: Yes Discussed and concerns (describe), provided support: No Referred to principal technical specialist: No Counseled on good nutrition, hydration, and self care: Yes Chronic & current problems reconciled on problem list: Yes Additional follow up plans: PIH precaution care discussed; questions answered: feeding Follow up: routine/prn Additional counseling & anticipatory guidance provided: continue PIH precaution, Nifedipine 30 xl daily. rtc 3 days BP check
== END 2025-03-30 09:25 | disposition home or self-care (01) ==
PROVIDERS: Supervising Provider Advanced Practice Midwife; Visit Provider Advanced Practice Midwife
DX: Z39.2 Encounter for routine postpartum follow-up (principal); O14.95 Unspecified pre-eclampsia, complicating the puerperium
CPT/HCPCS: 59430; 99213; G0463

== ENCOUNTER 2025-04-01 10:08 | Outpatient (AMB) | payer MEDICAID, SELFPAY ==
--- NOTE | 2025-04-01 10:19 | AMBOBPPN_ITS ---
Vital Signs 04/01/25 10:25 Height 1.68 m Height Method Stated Weight 71.724 kg Weight Measurement Method Standing Scale BMI 25.4 BP 135/92 H Blood Pressure Source Automatic Cuff Blood Pressure Location Right Lower Arm Position Sitting Respiration 16 Pulse 92 Pulse Source Monitor Temp 97.2 F Temp Source Oral Pulse Oximetry (%) 98 Oxygen Delivery Method Room Air Allergies/Home Meds Allergies & Medications Allergies No Known Allergies Allergy (Verified 04/01/25 10:26) Medication Reconciliation vit no.95-ferrous fumarate 28 mg-folic acid 800 mcg tablet () 1 tab PO QDAY 02/13/23 [History Confirmed 04/01/25] enalapril maleate 5 mg tablet (Vasotec) 5 mg PO QDAY #14 tabs 03/22/25 [Rx Confirmed 04/01/25] nifedipine 30 mg tablet,extended release 24 hr (Procardia XL) 30 mg PO QDAY #30 tabs 03/30/25 [Rx Confirmed 04/01/25] Intake Visit Data Collection New Patient or Established: Established Patient (seen at [facility] within 3 years) Reason for Visit:: [facility] CHECK Seen by Clinical Staff ONLY (RN/MA): No Fish Cutter Required: No Do You Feel Safe at Home: Yes Authorities Contacted: N/A PCP or OBGYN visit in last 3 months: Yes Date of Last PCP or OBGYN visit: 03/30/25 Hx Now: No Are you currently on any form of Control: No Pain Present Currently: No Pain Scale Used: Hood-Roldan/Numerical Pain scale:: 0 Smoking Status 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 Past Medical History: No Hx Neurological Disorders, No Hx Hypothyroidism, No Hx Hyperthyroidism, No Hx Breast Cancer, No Hx Cardiac Disorders, No Hx Hypertension, No Hx Cancer, No Hx Blood Disorders, No Hx Anemia, No Hx Gastrointestinal Disorders, No Hx Renal Disease, No Hx Deep Vein Thrombosis, No Hx Diabetes Mellitus Type 1, No Hx Diabetes Mellitus Type 2, No Hx Tubal Ligation, No Hx Hysterectomy and No Hx Polycystic Ovarian Syndrome Questionnaires Covid-19 Vaccine Questionnaire Has patient been vacinated for Covid-19 Have you been vacinated for Covid-19: Yes Social History Living Situation History Marital Status: Single Lives With: Family Housing: House Housing Other:: Has a 1-1/2-year-old child at home. a girl. Stays at home Tobacco History Smoking Status: Never smoker Second Hand Smoke Exposure: No Alcohol History Alcohol Intake: Never Substance Use History Substance Use: no Domestic Abuse History Do You Feel Safe at Home: Yes EPDS - PP Depression Screening [place] Pospartum Depression Screen I have been able to laugh and see the funny side of things: (0) As much as I always could I have looked forward with enjoyment to things: (0) As much as I ever did I have blamed myself unnecessarily when things went wrong: (0) No, never I have been anxious or worried for no good reason: (0) No, not at all I have felt scared or panicky for no very good reason: (0) No, not at all Things have been getting on top of me: (0) No, I have been coping as well as ever I have been so unhappy that I have had difficulty sleeping: (0) No, not at all I have felt sad or miserable: (0) No, not at all I have been so unhappy that I have been crying: (0) No, never The thought of harming myself has occurred to me: (0) Never Total Score: EPDS Score: Referral is indicated for score of 9 or more, suicidal, or if provider believes patient is depressed regardless of score.: 0 EPDS completed yes Care OB Visit Log OB Flowsheet Initial Weight: 78 kg Date -?-?-?-?-?-?-?-?-?-?-?-?- EGA Weight BP Alb Glu CTX Pres Fundal ht FHR Mov Dilation Station Effacement Hx Notes Visit Note 08/19/24 -?-?--?-?-?-?-?-?-?-?-?-?- 8w 5d 80.002 kg (+2002.354 g) 112/78 140 09/11/24 -?-?-?-?-?-?-?-?-?-?-?-?- 12w 0d 78.528 kg (+528.179 g) 102/69 12 160 10/14/24 -?-?-?-?-?-?-?-?-?-?-?-?- 16w 5d 78.642 kg (+641.577 g) 120/76 16 150 active 11/13/24 -?-?-?-?-?-?-?-?-?-?-?-?- 21w 0d 79.095 kg (+1095.169 g) 135/81 22 140 active Patient is doing well she is almost back up to her first weight. She has an ultrasound scheduled this week at [facility] for structural survey. Patient knows it is a boy. She will name Ricky. No bleeding or contractions. Good movement. 12/16/24 -?-?-?-?-?-?-?-?-?-?-?-?- 25w 5d 80.343 kg (+2342.548 g) 110/71 25 active No contractions no loss of fluids doing well. Glucose challenge test ordered. 01/22/25 -?-?-?-?-?-?-?-?-?-?-?-?- 31w 0d 80.966 kg (+2966.238 g) 111/77 30 137 active +FM, No UCS No VB Elevated GCT, for GTT RhoGAM today 02/12/25 -?-?-?-?-?-?-?-?-?-?-?-?- 34w 0d 82.214 kg (+4213.617 g) 130/70 absent 34 145 active Good movement no contractions no vaginal bleeding GTT normal. Had RhoGAM. Need ultrasound for size and dates. This was authorized. 02/16/25 -?-?-?-?-?-?-?-?-?-?-?-?- 34w 4d 82.1 kg (+4100.219 g) 114/74 absent cephalic 34 active 02/26/25 -?-?-?-?-?-?-?-?-?-?-?-?- 36w 0d 82.724 kg (+4723.908 g) 126/5 absent cephalic 34 145 act jennifer Good movement. Denies leaking, denies bleeding, denies contractions. Increased [place] pressure. Slight backache. Patient is doing well GBS today. Discussed labor precautions kick count twice a day. Increase fluids. Return a week OB check 03/04/25 -?-?-?-?-?-?-?-?-?-?-?-?- 36w 6d 82.611 kg (+4610.51 g) 137/81 occasional cephalic 36 146 absent Good movement. Denies leaking. Denies contractions. No bleeding. Increased pressure.. Discussed GBS. Labor precautions. Discussed danger signs symptoms and ER precautions with parameters. Kick count twice a day. Increase fluids. Continue prenatals. Return a week OB check 03/15/25 -?-?-?-?-?-?-?-?-?-?-?-?- 38w 3d 83.064 kg (+5064.102 g) 137/88 occasional cephalic 38 145 active 1 -3 50 svE: L/Thick/high/post/soft. Reports good movement. Denies leaking or bleeding. Complains of vaginal discharge and itch. Per exam today patient's vagina red with white curdy discharge. NuSwab plus today. Diflucan 150 p.o. daily x 3. Discussed labor precautions and kick count. Increase fluids. Continue prenatals. Return in a week OB check ALLEGRA Calculator Estimated Delivery Date Method Current WG Current Estimate 03/26/25 Ultrasound #1 40w 6d Other Estimates 03/20/25 Ultrasound #2 41w 5d 03/19/25 Manual 41w 6d sono done 5, IUP was 21w5 Expected Delivery Route/Plan x 1 anticipate will want epidural Specific Issue/Plans Rh-. Will need RhoGAM. Notes Visit Date: 02/12/25 Last Updated by: Ellen Aviles ([facility])MD Failed 1 hour glucose, passed 3-hour glucose. Need ultrasound for size and dates. Visit Date: 01/22/25 Last Updated by: Ellen Aviles ([facility])MD labs O- /rubella immune/ RPR nonreactive/ hepatitis B surface antigen negative/hep B negative/ hep C negative/ GC negative /Chlamydia negative Visit Date: 10/14/24 Last Updated by: Ellen Aviles ([facility])MD Patient reports some flutters. No vaginal bleeding no cramping. She states she has lost about 10 pounds this but now her appetite is much better. She is set for structural survey in 4 weeks. HPI Interval History: 24-year-old 2 para 2 for follow-up on ER visit and BP check. Patient was seen 2 days ago in March 30 for preeclampsia. Patient had been seen in the ER and treated with IV magnesium sulfate., 4 g. And then discharged home on Vasotec 5 mg. Patient had come for visit blood pressures were 150/110 and 150/99. I consulted OB and patient was changed to nifedipine 30 mg XL. Patient reports that at her last visit 2 days ago she had noted that after leaving she had a mild headache and several spots before her eyes. But after starting the nifedipine 30 mg XL she reports that she has not had headache. And she has not had any visual changes. Patient is bottlefeeding a 7 pound 9 ounce baby. Bleeding is light pink. Denies complaints of pain. She is doing much better. Was or delivery considered high risk: No Delivery type: vaginal Was labor induced: no Gestational age at delivery (weeks): 39 Delivery date: 03/17/25 Delivering provider: sumanth marie Delivery complications: Yes Delivery complications comment: bleeding. Patient was treated with repeat Cytotec. And TXA. Patient had IV iron prior to discharge. Blood pressures were 130s over 80s. 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 Lungs clear no wheezes. Abdomen is soft nontender. Uterus well involuted. Perineum is intact no lacerations. No swelling. Small lochia. Negative Homans' sign. 2+ DTRs. No edema no swelling. Breasts are soft Office Procedures OBC Clinic LOC & Office Proc's Nursing/Assessment Patient Status: Established Patient OB Clinic Nursing Assessment: Medication Reconciliation, Update PMH in EMR and Vital Signs OB Clinic Coordination of Care: Education Complex Pt/Fam, Consent,records obtained, informed consent, Lab and Imaging orders, Results/Orders obtained and Staff clarify orders Special Needs: Heart tones Established Patient Charge Established Patient Point Assignment: 115 Established Patient Point Charge: EP Level 3 (80-115) Assessment & Plan Diagnosis / Problem List (1) 2 weeks follow-up: Status: Acute (2) Pre-eclampsia in period: Status: Inactive Plan Continue nifedipine 30 mg XL as directed. I did PIH labs today including CMP, PT PTT. CBC. Uric acid and creatinine. Discussed PIH precautions, danger signs and ER precautions with parameters. Return with OB in 1 day for follow-up on plan of care. Increase rest. Drink fluids Care Reviewed delivery summary and any complications: Yes Uterus involuted to: 2 below Perineal / incision healing noted: Yes Screened for depression: Yes Depression counseling provided: No Discussed family planning & contraception: Yes Contraception planned: Unsure Counseling on safe resumption of sexual activity: Yes Counseling on gradual excercise: Yes Discussed and concerns (describe), provided support: No Referred to photo lab specialist: No Counseled on good nutrition, hydration, and self care: Yes Reviewed vaccine status: No Chronic & current problems reconciled on problem list: Yes care discussed; questions answered: feeding Follow up: routine/prn Additional counseling & anticipatory guidance provided: Follow-up with OB tomorrow morning. Let get labs done as directed. Continue nifedipine 30 mg XL daily
[2025-04-01 10:25] VITALS: BP 135/92; PULSE 92; RESP 16; TEMP 36.2; O2SAT 98; BMI 25.4
== END 2025-04-01 10:29 | disposition home or self-care (01) ==
LOC: HODSOBC 10:08
PROVIDERS: Supervising Provider Advanced Practice Midwife; Visit Provider Advanced Practice Midwife
DX: Z39.2 Encounter for routine postpartum follow-up (principal); O14.95 Unspecified pre-eclampsia, complicating the puerperium
CPT/HCPCS: 99213; G0463

== ENCOUNTER 2025-04-02 13:28 | Outpatient (AMB) | payer MEDICAID, SELFPAY ==
[2025-04-02 13:35] VITALS: BP 135/82; PULSE 84; RESP 16; TEMP 36.7; O2SAT 98; BMI 25.5
--- NOTE | 2025-04-02 13:35 | AMBOBPPN_ITS ---
Vital Signs 04/02/25 13:35 Height 1.68 m Height Method Stated Weight 72.178 kg Weight Measurement Method Standing Scale BMI 25.5 BP 135/82 H Blood Pressure Source Automatic Cuff Blood Pressure Location Left Upper Arm Position Sitting Respiration 16 Pulse 84 Pulse Source Monitor Temp 98.1 F Temp Source Oral Pulse Oximetry (%) 98 Oxygen Delivery Method Room Air Allergies/Home Meds Allergies & Medications Allergies No Known Allergies Allergy (Verified 04/02/25 13:36) Medication Reconciliation vit no.95-ferrous fumarate 28 mg-folic acid 800 mcg tablet () 1 tab PO QDAY 02/13/23 [History Confirmed 04/02/25] enalapril maleate 5 mg tablet (Vasotec) 5 mg PO QDAY #14 tabs 03/22/25 [Rx Confirmed 04/02/25] nifedipine 30 mg tablet,extended release 24 hr (Procardia XL) 30 mg PO QDAY #30 tabs 03/30/25 [Rx Confirmed 04/02/25] Intake Visit Data Collection New Patient or Established: Established Patient (seen at [facility] within 3 years) Reason for Visit:: /BLOOD PRESSURE CHECK Seen by Clinical Staff ONLY (RN/MA): No Water Control Supervisor Required: No Do You Feel Safe at Home: Yes Authorities Contacted: N/A PCP or OBGYN visit in last 3 months: Yes Hx Now: Yes Are you currently on any form of Control: No Pain Present Currently: No Pain Scale Used: Hood-Roldan/Numerical Pain scale:: 0 Smoking Status Smoking Status: Never smoker [employer]: Past Medical History Past Medical History: No Hx Neurological Disorders, No Hx Hypothyroidism, No Hx Hyperthyroidism, No Hx Breast Cancer, No Hx Cardiac Disorders, No Hx Hypertension, No Hx Cancer, No Hx Blood Disorders, No Hx Anemia, No Hx Gastrointestinal Disorders, No Hx Renal Disease, No Hx Deep Vein Thrombosis, No Hx Diabetes Mellitus Type 1, No Hx Diabetes Mellitus Type 2, No Hx Tubal Ligation, No Hx Hysterectomy and No Hx Polycystic Ovarian Syndrome Questionnaires Covid-19 Vaccine Questionnaire Has patient been vacinated for Covid-19 Have you been vacinated for Covid-19: Yes Social History Living Situation History Lives With: Family Housing: House Housing Other:: Has a 1-1/2-year-old child at home. a girl. Stays at home Tobacco History Smoking Status: Never smoker Second Hand Smoke Exposure: No Alcohol History Alcohol Intake: Never Substance Use History Substance Use: no Domestic Abuse History Do You Feel Safe at Home: Yes EPDS - PP Depression Screening [place] Pospartum Depression Screen I have been able to laugh and see the funny side of things: (0) As much as I always could I have looked forward with enjoyment to things: (0) As much as I ever did I have blamed myself unnecessarily when things went wrong: (0) No, never I have been anxious or worried for no good reason: (0) No, not at all I have felt scared or panicky for no very good reason: (0) No, not at all Things have been getting on top of me: (0) No, I have been coping as well as ever I have been so unhappy that I have had difficulty sleeping: (0) No, not at all I have felt sad or miserable: (0) No, not at all I have been so unhappy that I have been crying: (0) No, never The thought of harming myself has occurred to me: (0) Never Total Score: EPDS Score: Referral is indicated for score of 9 or more, suicidal, or if provider believes patient is depressed regardless of score.: 0 EPDS completed yes Care OB Visit Log OB Flowsheet Initial Weight: 78 kg Date -?-?-?-?-?-?-?-?-?-?-?-?- EGA Weight BP Alb Glu CTX Pres Fundal ht FHR Mov Dilation Station Effacement Hx Notes Visit Note 08/19/24 -?-?-?-?-?-?-?-?-?-?-?-?- 8w 5d 80.002 kg (+2002.354 g) 112/78 140 09/11/24 -?-?-?-?-?-?-?-?-?-?-?-?- 12w 0d 78.528 kg (+528.179 g) 102/69 12 160 10/14/24 -?-?-?-?-?-?-?-?-?-?-?-?- 16w 5d 78.642 kg (+641.577 g) 120/76 16 150 active 11/13/24 -?-?-?-?-?-?-?-?-?-?-?-?- 21w 0d 79.095 kg (+1095.169 g) 135/81 22 140 active Patient is doing well she is almost back up to her first weight. She has an ultrasound scheduled this week at [facility] for structural survey. Patient knows it is a boy. She will name Ricky. No bleeding or contractions. Good movement. 12/16/24 -?-?-?-?-?-?-?-?-?-?-?-?- 25w 5d 80.343 kg (+2342.548 g) 110/71 25 active No contractions no loss of fluids doing well. Glucose challenge test ordered. 01/22/25 -?-?-?-?-?-?-?-?-?-?-?-?- 31w 0d 80.966 kg (+2966.238 g) 111/77 30 137 active +FM, No UCS No VB Elevated GCT, for GTT RhoGAM today 02/12/25 -?-?-?-?-?-?-?-?-?-?-?-?- 34w 0d 82.214 kg (+4213.617 g) 130/70 absent 34 145 active Good movement no contractions no vaginal bleeding GTT normal. Had RhoGAM. Need ultrasound for size and dates. This was authorized. 02/16/25 -?-?-?-?-?-?-?-?-?-?-?-?- 34w 4d 82.1 kg (+4100.219 g) 114/74 absent cephalic 34 active 02/26/25 -?-?-?-?-?-?-?-?-?-?-?-?- 36w 0d 82.724 kg (+4723.908 g) 126/5 absent cephalic 34 145 act jennifer Good movement. Den ies leaking, denies bleeding, denies contractions. Increased [place] pressure. Slight backache. Patient is doing well GBS today. Discussed labor precautions kick count twice a day. Increase fluids. Return a week OB check 03/04/25 -?-?-?-?-?-?-?-?-?-?-?-?- 36w 6d 82.611 kg (+4610.51 g) 137/81 occasional cephalic 36 146 absent Good movement. Denies leaking. Denies contractions. No bleeding. Increased pressure.. Discussed GBS. Labor precautions. Discussed danger signs symptoms and ER precautions with parameters. Kick count twice a day. Increase fluids. Continue prenatals. Return a week OB check 03/15/25 -?-?-?-?-?-?-?-?-?-?-?-?- 38w 3d 83.064 kg (+5064.102 g) 137/88 occasional cephalic 38 145 active 1 -3 50 svE: L/Thick/high/post/soft. Reports good movement. Denies leaking or bleeding. Complains of vaginal discharge and itch. Per exam today patient's vagina red with white curdy discharge. NuSwab plus today. Diflucan 150 p.o. daily x 3. Discussed labor precautions and kick count. Increase fluids. Continue prenatals. Return in a week OB check ALLEGRA Calculator Estimated Delivery Date Method Current WG Current Estimate 03/26/25 Ultrasound #1 41w 0d Other Estimates 03/20/25 Ultrasound #2 41w 6d 03/19/25 Manual 42w 0d sono done 5, IUP was 21w5 Expected Delivery Route/Plan x 1 anticipate will want epidural Specific Issue/Plans Rh-. Will need RhoGAM. Notes Visit Date: 02/12/25 Last Updated by: Ellen Aviles ([facility])MD Failed 1 hour glucose, passed 3-hour glucose. Need ultrasound for size and dates. Visit Date: 01/22/25 Last Updated by: Ellen Aviles ([facility])MD labs O- /rubella immune/ RPR nonreactive/ hepatitis B surface antigen negative/hep B negative/ hep C negative/ GC negative /Chlamydia negative Visit Date: 10/14/24 Last Updated by: Ellen Aviles ([facility])MD Patient reports some flutters. No vaginal bleeding no cramping. She states she has lost about 10 pounds this but now her appetite is much better. She is set for structural survey in 4 weeks. HPI Interval History: The patient is a 24-year-old -0-0-1 status post vaginal delivery 03/17/2025 by Rosa Elena at 38-5/7 weeks. Patient had elevated blood pressures on discharge and is currently on Procardia 30 mg p.o. daily. She presents today for blood pressure check. Patient feels better she denies headaches shortness of breath or changes in vision Rosa Elena had some labs drawn 925 that are all within normal limits with the exception of a slightly elevated uric acid. Her son weighed 7 pounds 8 ounces at . She is breast-feeding. Today her blood pressure is 135/82. She has a blood pressure cuff at home. The plan will be for her to check her blood pressure if needed we can bump her down to 15 mg of Procardia daily. Patient states she is able to cut her pill in half if needed. Was or delivery considered high risk: No Delivery type: vaginal Gestational age at delivery (weeks): 38 Delivery date: 03/17/25 Delivering provider: Rosa Elena Camilo CNM Delivery complications: No Is patient : Yes Is patient sexually active: No Exam Narrative Physical exam: Fundus firm. Extremities show no significant edema or erythema General Limitations: no limitations General Appearance: alert, in no apparent distress, comfortable, cooperative and well groomed Results Objective Laboratory: Preeclamptic labs ordered by Rosa Elena reviewed from [facility] and normal. Office Procedures OBC Clinic LOC & Office Proc's Nursing/Assessment Patient Status: Established Patient OB Clinic Nursing Assessment: Medication Reconciliation, Update PMH in EMR and Vital Signs OB Clinic Coordination of Care: Complex Care and Chronic Disease 1-5, Consent,records obtained, informed consent, Education Simp Pt/Fam, Lab and Imaging orders, Results/Orders obtained and Staff clarify orders Established Patient Charge Established Patient Point Assignment: 105 Established Patient Point Charge: EP Level 3 (80-115) Assessment & Plan Diagnosis / Problem List (1) care following vaginal delivery: Status: Acute Plan: Pelvic rest x 6 weeks. No signs of depression. Patient is breast- feeding well. (2) Preeclampsia in period: Status: Acute Plan: On Procardia XL 30 mg p.o. daily. Patient is doing well. Labs are normal. She is to call the office with her blood pressures. She may have to go down on her medication and eventually discontinue it. Follow-up with Rosa Elena in 4 weeks.
== END 2025-04-02 13:42 | disposition home or self-care (01) ==
LOC: HODSOBC 13:28
PROVIDERS: Supervising Provider Obstetrics & Gynecology; Visit Provider Obstetrics & Gynecology
DX: Z39.2 Encounter for routine postpartum follow-up (principal); O14.95 Unspecified pre-eclampsia, complicating the puerperium; Z39.1 Encounter for care and examination of lactating mother
CPT/HCPCS: 99213; G0463

== ENCOUNTER 2025-05-27 09:00 | Day surgery (SDC) | payer MEDICAID, SELFPAY ==
[2025-05-26 07:56] VITALS: BMI 25.5
[2025-05-26 08:53] LABS: Basophils # (Auto) 0.1 Thou/mm3 (0.0-0.2); Basophils % (Auto) 1 % (0-2.5); Eosinophils # (Auto) 0.1 Thou/mm3 (0.0-0.5); Eosinophils % (Auto) 1 % (0-10); Hematocrit 40.5 % (36.0-46.0); Hemoglobin 13.4 g/dL (12.0-16.0); Immature Granulocytes Auto 0.01 Thou/mm3 (0.00-0.00); Lymphocytes # (Auto) 2.2 Thou/mm3 (1.0-4.8); Lymphocytes % (Auto) 30 % (10-50); Mean Corpuscular HGB Conc 33.1 g/dl (31.0-37.0); Mean Corpuscular Hemoglobin 28.3 pg (25.0-35.0); Mean Corpuscular Volume 85 fL (80-100); Monocytes # (Auto) 0.4 Thou/mm3 (0.0-0.8); Monocytes % (Auto) 6 % (0-12); Neutrophils # (Auto) 4.4 Thou/mm3 (1.8-7.7); Neutrophils % (Auto) 61 % (37-80); Nucleated Red Blood Cell # 0.00 Thou/mm3 (0.00-0.00); Nucleated Red Blood Cell % 0 /100 WBC (0); Platelet Count 337 Thou/mm3 (140-440); RDW Standard Deviation 42.5 fL (36.4-46.3); Red Blood Count 4.74 Miln/mm3 (4.00-5.20); White Blood Count 7.1 Thou/mm3 (3.6-11.0)
[2025-05-26 09:02] LABS: HCG,Qualitative Serum Negative
[2025-05-26 09:08] LABS: Alanine Aminotransferase 528 U/L (10-49); Albumin, Serum 4.9 gm/dL (3.5-5.0); Albumin/Globulin Ratio 2.3 (1.2-2.2); Alkaline Phosphatase 263 U/L (46-116); Anion Gap 9 (7-16); Aspartate Amino Transferase 359 U/L (0-34); BUN/Creatinine Ratio 14 Ratio (12-20); Bilirubin,Total 0.4 mg/dL (0.3-1.2); Blood Urea Nitrogen 13 mg/dL (9-23); Calcium 9.8 mg/dL (8.3-10.6); Calcium (Corrected) 9.8 mg/dL (8.5-10.1); Carbon Dioxide 28.4 mMol/L (20.0-31.0); Chloride 104 mMol/L (98-107); Creatinine (Component) 0.9 mg/dL (0.6-1.3); Estimated Creatinine Clearance 97.9 mL/min (>60); Globulin 2.1 gm/dL (2.3-3.5); Glucose 101 mg/dL (74-106); Osmolality,Calculated 281 (275-295); Potassium 5.1 mMol/L (3.4-5.1); Sodium 141 mMol/L (136-145); Total Protein 7.0 gm/dL (5.7-8.2); eGFR > 60 See Note
[2025-05-27] VITALS (9 sets, daily range): BP systolic 122–150; BP diastolic 74–88; PULSE 73–96; RESP 5–17; TEMP 36.6–36.8; O2SAT 99–100; BMI 26.2
--- NOTE | 2025-05-27 12:00 | XR_ITS ---
EXAMINATION: Operative cholangiogram TECHNIQUE: AP supine abdomen single view Date and time: May 27, 2025, 11:20 a.m. INDICATIONS: Status post laparoscopic cholecystectomy FINDINGS: Excellent opacification of the intra and extrahepatic biliary tree 3 mm filling defect in the common hepatic duct No common bile duct obstruction IMPRESSION: 3. Millimeter air bubble versus small stone in the common hepatic duct, clinical correlation advised
--- NOTE | 2025-05-27 12:01 | PD.SUROPNT ---
Date of Procedure 05/27/25 Pre Op Diagnosis Symptomatic cholelithiasis Post Op Diagnosis Cholelithiasis with cholecystitis Procedure Laparoscopic cholecystectomy with intraoperative cholangiogram Findings Moderately distended gallbladder with gallstones and chronic cholecystitis. Cholangiogram revealed unremarkable biliary anatomy without obvious CBD stones, and filling of contrast into the duodenum Procedure Description Patient was brought into the operating room in supine position. After administration of general endotracheal anesthesia abdomen was prepped and draped in standard surgical manner. A Veress needle was inserted through the umbilicus and pneumoperitoneum was obtained up to 15 mmHg. The Veress needle was then removed, a 5 mm infraumbilical incision was made and the 5mm trocar was inserted. Laparoscopic camera was placed. Under direct visualization a laparoscopic camera a 10 mm trocar was placed in subxiphoid and two 5 mm trocars placed in right upper quadrant. The gallbladder was identified and was noted to be moderately distended with multiple gallstones and chronic cholecystitis. It was retracted cephalad and laterally. Dissection started near the infundibulum of gallbladder where cystic duct and gallbladder junction clearly identified. The cystic duct was circumferentially dissected off the peritoneum and surrounding inflammatory tissue. The critical view of safety was clearly demonstrated. An Endo Clip placed near the cystic duct and gallbladder junction and a small ductotomy was performed. Cholangiogram catheter was placed through the ductotomy site and contrast was injected. Cholangiogram x-ray was obtained that revealed unremarkable biliary anatomy, filling of contrast into the duodenum without obvious CBD stones. The cholangiogram catheter was removed and the cystic duct was divided between 2 endoclips proximally and one distally. The cystic artery was similarly divided. The gallbladder was then from the liver bed using electrocautery. The gallbladder was then placed inside an Endo Catch and removed from the abdomen utilizing subxiphoid trocar site. The area was copiously and thoroughly washed and irrigated, all the fluid was suctioned and the suction fluid returned clear. Hemostasis achieved using electrocautery. Endoclips noted be in place and intact without any bleeding or any leakage. Hemostasis was adequate and satisfactory. The subxiphoid trocar sites fascial defect was closed with 0 Vicryl using Endo Closure device. Instruments and trocars removed, pneumoperitoneum was evacuated and the incisions closed with 4-0 Monocryl in subcuticular fashion. Instrument needle and sponge counts were all reported to be correct X2. Patient tolerated the procedure well, was extubated, breathing spontaneously and without difficulty and was transferred to postanesthesia care in stable condition. Anesthesia GETA and local Pathology / specimen Other (Gallbladder and contents) Estimated Blood Loss 10 Condition Stable Disposition PACU Surgeon Regis Smith MD Surgical Staff Operation Date: 05/27/25 13:00 Case Staff Anesthesiologist: Fito Aguirre RN First Assistant: Suzy Shah
--- NOTE | 2025-05-27 12:25 | SUR.PHASEI ---
1205: Pt received in Pac[facility] via gurney. Report from Tahir PAEZ and Dawson CALLEJAS. Oral airway in place. No respirations. Jaw thrust provided with immediate air exchange. Resp unlabored but sporadic. Repositioning of jaw required to achieve adequate respirations. 1210: Jaw thrust continues. Resp even, unlabored. Pt continues to remain unresponsive. 1220: Pt achieved spontaneous resp. Pt awakening with eye opening. Oral airway dc'd. Resp even, unlabored. VS stable. Surgical sites x4 to abdomen secured with dermabond and are clean, dry, intact with no abnormal swelling or discoloration. No c/o pain.
--- NOTE | 2025-05-27 12:40 | SUR.PHASEI ---
1235: Pt has been resting with no complaints voiced. Resp even, unlabored. VS stable. Surgical sites x4 to abdomen remain dry, clean, intact with no swelling, discoloration.
--- NOTE | 2025-05-27 14:39 | SUR.PHASEII ---
1300: Pt more awake, alert. Resp even, unlabored. VS stable. Surgical site remains dry, clean, intact. No swelling, discoloration. States she has very little pain and only with movement. Sitting up tolerating po fluids with no difficulty swallowing and no n/v. 1327: Pt fully awake, oriented x3. VS stable. Surgical sites unchanged. Very little pain with movement. Pt and partner stated understanding of discharge instructions. Pt also instructed to order picker her prescription at [facility]. Pt discharged from [facility] in stable condition.
== END 2025-05-27 13:27 | disposition home or self-care (01) ==
LOC: S2EX 14:56
PROVIDERS: PCP Family Medicine; Referring Provider Surgery; Visit Provider Surgery
PROC: 0FT44ZZ Resection of Gallbladder, Percutaneous Endoscopic Approach (ICD-10-PCS; CPT 47562; principal; 2025-05-27 12:45)
DX: K80.10 Calculus of gallbladder with chronic cholecystitis without obstruction (principal)
CPT/HCPCS: 47563; 36415; 74300; 80053; 84703; 85025; A4217; A4649; J0131; J0694; J1100; J1885; J2250; J2371; J2405; J2704; J3010; J3490